=== PATIENT | female | born 1930 | race Caucasian/White ===

== ENCOUNTER 2018-01-21 11:00 | Outpatient (CLI) | payer MEDICARE, OTHER ==
[2018-01-21] MEDS ORDERED: IOPAMIDOL-300 100 ML VIAL ONE (11:17)
--- NOTE | 2018-01-21 12:57 | CT Preliminary Report ---
Exam: CT LOWER EXTREMITY LEFT W/O IMPRESSION: 1. Nondisplaced fracture left sacral ala without sclerosis, concerning for acute fracture. 2. No evidence of periprosthetic fracture. 3. Old right superior and inferior pubic rami fractures. 4. Possible superimposed nondisplaced right inferior pubic ramus fracture. 5. Subtle asymmetry of the left femoral head within the acetabular component, concerning for polyethy milena liner wear. 6. No large hip joint effusion visualized. [facility] SITE ID: [id number]
--- NOTE | 2018-01-21 13:19 | CT Report ---
EXAM: LEFT HIP CT WITHOUT CONTRAST. EXAM DATE: 01/21/2018 11:48 AM. CLINICAL HISTORY: Left hip pain. COMPARISON: None. TECHNIQUE: Thin-section axial images were acquired of the hip without contrast. Post-processing: Shady nal and sagittal reformats. Other: None. In accordance with CT protocol optimization, one or more of the following dose reduction techniques w ere utilized for this exam: automated exposure control, adjustment of mA and/or KV based on patient s ize, or use of iterative reconstructive technique. FINDINGS: Bones: Osteopenia. Streak artifact from bilateral hip prosthesis moderately limits evaluation at the level of the hips. Nondisplaced vertically oriented fracture at the inferior lateral aspect left sacral ala. No sclerosi s at this site, suggesting likely acute. Old minimally displaced fracture extends transversely through the distal sacrum at the S4 segment. Old healed fractures of the right superior and inferior pubic rami. Possible superimposed acute fract ure at the anterior aspect right inferior pubic ramus. No discrete periprosthetic fracture visualized at the left hip. Medial fixation screw at the right acetabulum extends 3 mm beyond the medial cortex. Lower lumbar spine: Grade 1 anterolisthesis at L5 on S1. Moderate to severe degenerative disk and fac et changes partially visualized. Ill-defined curvilinear foci of high attenuation within the peripher y of the thecal sac, most prominent in the sacrum. This may be due to old procedure or infection. Joints: Location of the femoral component of the left hip prosthesis slightly asymmetric, projecting in the superolateral aspect of the acetabular component (coronal image 118 of series 6.1). Tilt of th e acetabular component measures 49 degrees relative to the ischial tuberosities. No large joint effus ion visualized. Right femoral component symmetrically located within the acetabular component. Right acetabular compo nent measures 48 degrees relative to the ischial tuberosities. No large joint effusion visualized. Moderate degenerative changes at the sacroiliac joints and pubic symphysis. Musculature: Mild to moderate fatty atrophy in the bilateral gluteal muscles, left greater than right . Evaluation for muscle edema limited on CT. Other: Post surgical changes of ventral hernia repair. Severe atherosclerosis. Sigmoid diverticula. N o gross free fluid or enlarged lymph nodes visualized. IMPRESSION: 1. Nondisplaced fracture of the left sacral ala without sclerosis, concerning for acute fracture. 2. No evidence of periprosthetic fracture. 3. Old right superior and inferior pubic rami fractures. 4. Possible superimposed acute nondisplaced right inferior pubic ramus fracture. 5. Subtle asymmetry of the left femoral head within the acetabular component, concerning for polyethy milena liner wear. 6. No large hip joint effusion visualized. [facility] Referring Provider Line: [phone] SITE ID: [id number]
== END 2018-01-21 11:01 | disposition home or self-care (01) ==
LOC: DI 11:00
PROVIDERS: ATTEND Specialist
DX: S32.10XA Unspecified fracture of sacrum, initial encounter for closed fracture (principal)

== ENCOUNTER 2018-05-05 16:51 | Outpatient (CLI) | payer MEDICARE, OTHER ==
--- NOTE | 2018-05-06 08:20 | XRAY Report ---
Procedure Date: 05/05/2018 Accession Number: [id number] / [id number] Procedure: XR - Chest 2 View X-Ray CPT Code: 76023 FULL RESULT: EXAM: Chest 2 View X-Ray DATE: 05/05/2018 5:16 PM CLINICAL HISTORY: CHEST MARGI,CHRONIC COUGH COMPARISON: None. TECHNIQUE: 2 views. FINDINGS: Lungs/Pleura: No focal opacities evident. No pneumothorax or pleural effusion. Normal volumes. Mediastinum: Heart and mediastinal contours are unremarkable. Other: Right subclavian approach central venous port terminates in the lower SVC. Bones appear qualitatively osteopenic with question of a 30% loss of height compression fracture of a lower vertebral body of the thoracic spine, likely T11. IMPRESSION: No cardiopulmonary abnormality. Age-indeterminate compression fracture as described. [facility]
== END 2018-05-05 16:52 | disposition home or self-care (01) ==
LOC: DI 16:51
PROVIDERS: ATTEND Specialist
DX: R05 Cough (principal)
CPT/HCPCS: 71046

== ENCOUNTER 2018-08-25 13:55 | Emergency (ER) | payer MEDICARE, OTHER ==
--- NOTE | 2018-08-25 14:42 | ED Physician Documentation ---
PD HPI HEADACHE - Stated complaint Stated Complaint: MAYO/VISION CHANGING/LOW JAW PX - Chief complaint Chief Complaint: General - History obtained from History obtained from: Patient, Family - History of Present Illness Timing - onset: How many months ago (1) Timing - onset during: Rest Timing - duration: Months (1) Timing - details: Gradual onset, Still present Location: Right Quality: Throbbing, Aching Associated symptoms: Stiff neck, Nausea, Vision changes. No: Vomiting, Weakness, Numbness, Syncope, Seizure, Eye pain Improved by: Rest, Quiet Worsened by: Moving Contributing factors: Anticoagulated Similar symptoms before: Has not had sx before Recently seen: Not recently seen - Additional information Additional information: 87-year-old female with a prior history of breast cancer and stomach cancer has developed a headache in the right occipital area. She notes that this is been going on for about a month and it is progressively worsened day by day. She is now beginning to develop some nausea associated with this. She has not had any vomiting. She describes the pain is on the right side of her head radiating up to the front and coming from the back of her neck. She describes the visual field changes she is having as white lights interfering with her vision and some kind of a problem with the far left visual field out of the left eye. Review of Systems Constitutional: denies: Fever, Chills, Myalgias Eyes: reports: Decreased vision Ears: denies: Ear pain Nose: denies: Rhinorrhea / runny nose, Congestion Throat: denies: Sore throat Cardiac: denies: Chest pain / pressure, Palpitations Respiratory: denies: Dyspnea, Cough GI: reports: Nausea. denies: Abdominal Pain, Vomiting : denies: Dysuria, Frequency Skin: denies: Rash Musculoskeletal: reports: Neck pain, Back pain. denies: Extremity pain Neurologic: reports: Headache. denies: Generalized weakness, Focal weakness, Numbness, Difficulty speaking, Head injury, LOC PD PAST MEDICAL HISTORY - Present Medications Home Medications: Ambulatory Orders Medication Instructions Recorded Confirmed Cyclobenzaprine [Flexeril] 10 mg PO TID PRN #20 tablet 08/25/18 Hydrocodone/Acetaminophen 1 each PO Q6HR PRN #15 tablet 08/25/18 [Hydrocodon-Acetaminophn 10-325] PD ED PE NORMAL - Vitals Vital signs reviewed: Yes (normal) - General General: Alert and oriented X 3, Well developed/nourished, Other (The patient does appear to be in pain with global safety officer tone and flat affect. ) - HEENT HEENT: Atraumatic, PERRL, EOMI, Other (There is a subjective visual field defi cit on the left lateral feild and from the left eye only .) - Neck Neck: Supple, no meningeal sign, No bony TTP - Cardiac Cardiac: RRR, No murmur - Respiratory Respiratory: No respiratory distress, Clear bilaterally - Abdomen Abdomen: Soft, Non tender - Back Back: No CVA TTP, No spinal TTP - Derm Derm: Normal color, Warm and dry, No rash - Extremities Extremities: No deformity, No edema - Neuro Neuro: Alert and oriented X 3, No motor deficit, No sensory deficit, Normal speech Eye Opening: Spontaneous Motor: Obeys Commands Verbal: Oriented GCS Score: 15 - Psych Psych: Normal mood, Normal affect Results - Vitals Vitals: Vital Signs - 24 hr 08/25/18 13:58 Temperature 36.9 C Heart Rate 68 Respiratory 18 Rate Blood Pressure 135/54 H O2 Saturation 99 Oxygen O2 Source Room air - Rads (name of study) MRI brain with and without Radiology: Prelim report reviewed (Impression: 1. No acute intracranial abnormality. Specifically, no evidence of acute infarct, hemorrhage or mass lesion. 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 3 Mild to moderate white matter changes, most consistent with sequela of chronic small vessel ischemic disease and a common finding in this age group.), EMP read indepedently, See rad report PD MEDICAL DECISION MAKING - ED course Complexity details: reviewed old records, reviewed results, re-evaluated patient, considered differential, d/w patient, d/w family ED course: 87-year-old female with a severe headache progressive over the past month does have a left visual field deficit and pain in the right occiput. My concern is for the possibility of metastatic or primary tumor. The CT scan is not operational now and an MR is ordered. There is no evidence of metastatic or primary tumor and no evidence of bleed. The patient is treated in the emergency department with intravenous dexamethasone Dilaudid and Zofran. She has some improvement her headache with this. We will treat her with pain medication muscle relaxant expect her headache to resolve further. Departure - Departure Disposition: 01 Home, Self Care Clinical Impression: Tension headache Condition: Stable Instructions: ED Headache Tension Follow-Up: Sander Pinzon MD [Primary Care Provider] - Prescriptions: Hydrocodone/Acetaminophen [Hydrocodon-Acetaminophn 10-325] 1 each PO Q6HR PRN #15 tablet PRN Reason: Pain Cyclobenzaprine [Flexeril] 10 mg PO TID PRN #20 tablet PRN Reason: Spasms
[2018-08-25] MEDS ORDERED: HYDROmorphone 1 MG/ML CARPUJECT IM STA (15:00)
[2018-08-25] MEDS ORDERED: ONDANSETRON ODT 4 MG TABLET TL STA (15:00)
[2018-08-25] MEDS ORDERED: DEXAMETHASONE 10 MG/ML VIAL PO STA (15:00)
[2018-08-25] MEDS ORDERED: ONDANSETRON 4 MG/2 ML VIAL ONE (15:55)
[2018-08-25] MEDS ORDERED: HYDROmorphone 1 MG/ML CARPUJECT IVP STA (16:05)
[2018-08-25] MEDS ORDERED: ONDANSETRON 4 MG/2 ML VIAL IVP STA (16:05)
[2018-08-25] MEDS ORDERED: DEXAMETHASONE 10 MG/ML VIAL IVP STA (16:06)
[2018-08-25] MEDS ORDERED: GADOBUTROL 7.5 MMOL/7.5 ML VIAL ONE (16:22)
[2018-08-25] MEDS ORDERED: GADOBUTROL 7.5 MMOL/7.5 ML VIAL IVP ONE (16:25)
--- NOTE | 2018-08-25 16:45 | MRI Report ---
Reason: progressive occipital headache visual field change Procedure Date: 08/25/2018 Accession Number: [id number] / [id number] Procedure: MRI - Brain W/WO CPT Code: FULL RESULT: EXAM: MRI BRAIN WITHOUT AND WITH CONTRAST EXAM DATE: 08/25/2018 04:29 PM. CLINICAL HISTORY: 87-year-old woman with progressive occipital headache and visual field change. COMPARISON: None. TECHNIQUE: Multiplanar, multisequence T1-weighted and fluid-sensitive MR sequences of the brain were performed. Sequences optimized for routine evaluation. Other: None. IV Contrast: 7 cc Gadavist. FINDINGS: Parenchyma: No evidence of acute infarct on diffusion weighted sequence. Linear focus of encephalomalacia is present in the left external capsule, consistent with remote infarct. Otherwise, the parenchyma demonstrates mild to moderate burden of nonspecific FLAIR hyperintensities in the periventricular and deep cerebral white matter as well as the alok, most consistent with sequelae of chronic small vessel ischemic disease and a common finding in this age group. No evidence of prior hemorrhage on susceptibility weighted sequence. No abnormal enhancement. Pituitary: Unremarkable. Ventricles and Extra-axial Spaces: Ventricles are symmetric and normal in size for age. Extra-axial spaces are unremarkable. No abnormal enhancement. Orbits: Unremarkable except for bilateral lens replacement surgery. Sinuses: Mild scattered mucosal thickening is present in the paranasal sinuses. There is a left mastoid effusion. Major Vascular Flow Voids: Intact. IMPRESSION: 1. No acute intracranial abnormality. Specifically, no evidence of acute infarct, hemorrhage, or mass lesion. 2. Linear encephalomalacia in the left external capsule, consistent with remote infarct. 3. Mild to moderate white matter changes, most consistent with sequelae of chronic small vessel ischemic disease and a common finding in this age group. [facility]
[2018-08-25 17:00] VITALS: BP 158/84
== END 2018-08-25 17:18 | disposition home or self-care (01) ==
LOC: ED 13:55
DX: G44.209 Tension-type headache, unspecified, not intractable (principal); G93.89 Other specified disorders of brain
CPT/HCPCS: 70553; 96372; 96374; 96375; 99283; A9585; J1170

== ENCOUNTER 2018-08-29 14:05 | Outpatient (CLI) | payer MEDICARE, OTHER | END 2018-08-29 14:06 | disposition critical access hospital (66) | LOC: EMS 14:05 | PROVIDERS: ATTEND Surgery | DX: M25.552 Pain in left hip (principal); M79.622 Pain in left upper arm; W01.0XXA Fall on same level from slipping, tripping and stumbling without subsequent striking against object, initial encounter; Y92.009 Unspecified place in unspecified non-institutional (private) residence as the place of occurrence of the external cause | CPT/HCPCS: A0425; A0427 ==

== ENCOUNTER 2018-10-05 12:38 | Outpatient (CLI) | payer MEDICARE, OTHER ==
--- NOTE | 2018-10-05 14:39 | CT Report ---
Reason: R SIDE HEADACHE CRESENDO, HX OF MULTIPLE MALIGNANE Procedure Date: 10/05/2018 Accession Number: [id number] / [id number] Procedure: CT - Head W/O CPT Code: FULL RESULT: EXAM: CT HEAD EXAM DATE: 10/05/2018 12:51 PM. CLINICAL HISTORY: Right side headache crescendo, history of multiple malignancy. COMPARISON: None. TECHNIQUE: Multiaxial CT images were obtained from the foramen magnum to the vertex. Reformats: Sagittal and coronal. IV contrast: None. In accordance with CT protocol optimization, one or more of the following dose reduction techniques were utilized for this exam: automated exposure control, adjustment of mA and/or KV based on patient size, or use of iterative reconstructive technique. FINDINGS: Parenchyma: No intraparenchymal hemorrhage. No evidence of mass, midline shift, or CT findings of infarction. Fung-white differentiation is distinct. Extraaxial Spaces: Normal for age. No subdural or epidural collections identified. Ventricles: Normal in size and position. Sinuses and Orbits: Partial opacification with mucoperiosteal thickening in the sphenoid sinus bilaterally. Visualized orbits are within normal limits. Bones: No evidence of fracture or calvarial defect. Other: None. IMPRESSION: Sphenoid sinus sinusitis. [facility]
== END 2018-10-05 12:39 | disposition home or self-care (01) ==
LOC: DI 12:38
PROVIDERS: ATTEND Family Medicine
DX: J32.3 Chronic sphenoidal sinusitis (principal)
CPT/HCPCS: 70450

== ENCOUNTER 2018-10-28 10:27 | Outpatient (CLI) | payer MEDICARE, OTHER ==
--- NOTE | 2018-10-28 14:13 | XRAY Report ---
Reason: ACUTE ON CHRONIC L HIP PAIN (HIP REPLACED 1977) Procedure Date: 10/28/2018 Accession Number: [id number] / [id number] Procedure: XR - Hip w/Pelvis 2-3V LT CPT Code: FULL RESULT: EXAM: LEFT HIP RADIOGRAPHY EXAM DATE: 10/28/2018 10:44 AM. CLINICAL HISTORY: Acute on chronic left hip pain (hip replaced 1977). COMPARISON: Hip w/pelvis 2-3v left 08/29/2018 2:33 PM. TECHNIQUE: 2 views. FINDINGS: Bones and Joints: No acute fractures or bone lesion. Old right pubic rami fractures. A right hip arthroplasty has been performed. This implant has a screw fixated cup component and serrated stem. A left arthroplasty has been performed. This implant has a screw fixation-type cup and the stem has been additionally secured by a cerclage wire and separate screw. No unexpected periprosthetic lucency or other evidence of loosening. Soft Tissues: Atherosclerotic calcifications. No soft tissue swelling. IMPRESSION: No evidence of hardware failure or acute fracture. [facility]
== END 2018-10-28 10:28 | disposition home or self-care (01) ==
LOC: DI 10:27
PROVIDERS: ATTEND Family Medicine
DX: M25.552 Pain in left hip (principal)

== ENCOUNTER 2018-11-05 13:29 | Outpatient (CLI) | payer MEDICARE, OTHER ==
--- NOTE | 2018-11-05 15:59 | XRAY Report ---
Reason: SEVER NECK PAIN X 2-3 MONTHS, NO IMPROVING W/CONSE Procedure Date: 11/05/2018 Accession Number: [id number] / [id number] Procedure: XRN - Cervical Spine Complete CPT Code: FULL RESULT: EXAM: CERVICAL SPINE RADIOGRAPHY EXAM DATE: 11/05/2018 02:04 PM. CLINICAL HISTORY: Severe neck pain x 2-3 months, not improving . Unable to turn head. COMPARISONS: None. TECHNIQUE: 5 views. FINDINGS: Alignment: There is minor compensatory dextro-scoliotic curvature with minor levo-scoliotic curvature of the upper thoracic spine. Head is tilted slightly downward to the left. There is otherwise normal lordotic curvature, no evidence of listhesis. Bones: The cervical vertebral bodies and posterior elements are well-visualized from the skull base through C7-T1. No fractures or bone lesions. Disks: Moderate to significant degenerative disk space narrowing at C2-C3 through C6-C7. Facets: Mild degenerative facet changes on the right. Moderate degenerative facet changes on the left with probable moderate foraminal narrowing on the left at C6-C7. Neural Foramina: As above. Soft Tissues: Normal. No prevertebral soft tissue swelling. The visualized lung apices are clear. IMPRESSION: At least moderate multilevel degenerative disk and facet changes as described. No fracture appreciated. [facility]
== END 2018-11-05 13:30 | disposition home or self-care (01) ==
LOC: DI.N 13:29
PROVIDERS: ATTEND Family Medicine
DX: M50.123 Cervical disc disorder at C6-C7 level with radiculopathy (principal)
CPT/HCPCS: 72050

== ENCOUNTER 2018-12-16 08:57 | Outpatient (CLI) | payer MEDICARE, OTHER ==
--- NOTE | 2018-12-16 11:02 | XRAY Report ---
Reason: ACUTE ON CHRONIC RT HIP PAIN FALL, HX OF HIP REPLA Procedure Date: 12/16/2018 Accession Number: [id number] / [id number] Procedure: XR - Hip w/Pelvis 2-3V RT CPT Code: FULL RESULT: EXAM: RIGHT HIP RADIOGRAPHY EXAM DATE: 12/16/2018 09:31 AM. CLINICAL HISTORY: Acute on chronic right hip pain fall, history of hip replacement. COMPARISON: HIP W/PELVIS 2-3V LT 10/28/2018. TECHNIQUE: 2 views. FINDINGS: Bones: Stable appearance of bilateral total hip arthroplasty components. There is no evidence of periprosthetic fracture or delayed hardware complication of either hip. Stable sequela of prior healed fracture of the right obturator ring. No acute fracture appreciated. Joints: SI joints are within expected limits for age. No dislocation or subluxation. Soft Tissues: No soft tissue swelling. Multiple herniorrhaphy mesh markers superimpose over the lower abdomen, stable in appearance. IMPRESSION: Stable exam findings. Stable appearance of bilateral total hip arthroplasty components; no evidence of acute fracture or delayed hardware complication. [facility]
== END 2018-12-16 08:58 | disposition home or self-care (01) ==
LOC: DI 08:57
PROVIDERS: ATTEND Family Medicine
DX: M25.551 Pain in right hip (principal); R10.2 Pelvic and perineal pain; Z96.643 Presence of artificial hip joint, bilateral

== ENCOUNTER 2019-01-01 09:50 | Outpatient (CLI) | payer MEDICARE, OTHER ==
--- NOTE | 2019-01-01 11:31 | CT Report ---
Reason: R PELVIC PAIN, FALL 3-4 WKS AGO Procedure Date: 01/01/2019 Accession Number: [id number] / [id number] Procedure: CT - Abdomen/Pelvis WO CPT Code: FULL RESULT: EXAM: CT ABDOMEN AND PELVIS EXAM DATE: 01/01/2019 10:19 AM. CLINICAL HISTORY: Right pelvic pain, fall 3-4 weeks ago. COMPARISONS: HIP W/PELVIS 2-3V RT 12/16/2018 9:21 AM PELVIS W/O 08/29/2018 4:53 PM. TECHNIQUE: Routine helical CT imaging was performed through the abdomen and pelvis. IV contrast: No. Enteric contrast: No. Reconstructions: Coronal and sagittal. In accordance with CT protocol optimization, one or more of the following dose reduction techniques were utilized for this exam: automated exposure control, adjustment of mA and/or KV based on patient size, or use of iterative reconstructive technique. FINDINGS: Lung Bases: Unremarkable. Liver: Normal. No masses. Gallbladder/Bile Ducts: Gallbladder is surgically absent. There is no biliary ductal dilatation. Spleen: Small parenchymal calcifications, consistent with granulomata otherwise normal. Pancreas: Fatty atrophy commensurate with age. Adrenal Glands: Normal. Kidneys: Normal. No masses or hydronephrosis. Peritoneal Cavity/Bowel: There is colonic diverticulosis without CT evidence of diverticulitis. Herniorrhaphy mesh superimposes the right lower abdominal wall. No free fluid, free air or adenopathy. No masses or acute inflammatory process. The appendix is not specifically visualized. Pelvic Organs: [place] artifact from bilateral total hip arthroplasties limits evaluation of the pelvic contents but no abnormality is demonstrated. Vasculature: No aneurysms or other significant abnormality. Bones: There is a nondisplaced acute or subacute fracture of the right inferior pubic ramus at its junction with the symphysis pubis. Reference series 3 image 75. This fracture is not evident even in retrospect on plain films of 12/16/2018. The expected welcome center agent fracture in the right obturator ring is not identified with this technique. Stable sequela of remote healed fracture of the right obturator ring. No additional acute fractures appreciated. There are bilateral hip arthroplasty components with spray artifact producing limitation. No appreciable periprosthetic fracture by CT. There is an age-indeterminate compression fracture at the superior endplate of the T12 vertebral body with loss of 30% of the bone height. There is no surrounding paraspinous soft tissue swelling. There is 5 mm of convex retropulsion of the posterior-superior vertebral body margin as a result of this fracture. Degenerative vacuum disk phenomenon is noted at L4-L5 and L5-S1. There is 6 mm of grade 1 anterolisthesis of L5 on S1. No appreciable pars defect. Other: None. IMPRESSION: 1. Acute/subacute nondisplaced fracture at the right inferior pubic ramus at its junction with the symphysis pubis. Expected additional/welcome center agent fracture in the right obturator ring is not identified. 2. Age-indeterminate compression fracture at the superior endplate of T12 as described. 5 mm of retropulsion of the posterior-superior vertebral body margin. Lack of paraspinous edema favors fracture is subacute or chronic. [facility] The call report notification system was initiated by Dr. Leroy Barone at 11:21 AM on 01/01/2019. The above call report findings were discussed with Sander Pinzon by Dr. Leroy Barone at 11:28 AM on 01/01/2019.
== END 2019-01-01 09:51 | disposition home or self-care (01) ==
LOC: DI 09:50
PROVIDERS: ATTEND Family Medicine
DX: S32.591A Other specified fracture of right pubis, initial encounter for closed fracture (principal); S22.088A Other fracture of T11-T12 vertebra, initial encounter for closed fracture
CPT/HCPCS: 74176

== ENCOUNTER 2019-03-15 17:35 | Outpatient (CLI) | payer MEDICARE, OTHER ==
--- NOTE | 2019-03-16 03:30 | XRAY Report ---
Reason: LT HIP PAIN, HEMATOMA, HX OF PELVIC FX Procedure Date: 03/15/2019 Accession Number: [id number] / [id number] Procedure: XR - Hip w/Pelvis 2-3V LT CPT Code: FULL RESULT: EXAM: LEFT HIP RADIOGRAPHY EXAM DATE: 03/15/2019 06:11 PM. CLINICAL HISTORY: LT HIP PAIN, HEMATOMA, HX OF PELVIC FX. COMPARISON: HIP W/PELVIS 2-3V RT 12/16/2018 9:21 AM. TECHNIQUE: 2 views. FINDINGS: Bones: Bilateral hip replacements. Healed right superior and inferior pubic rami fractures. No acute fracture. Joints: Bilateral hip replacements. The sacroiliac joints appear unremarkable. Soft Tissues: Postoperative changes of hernia repair. Atherosclerotic calcifications. IMPRESSION: Stable bilateral hip replacements and old, healed right pubic rami fractures. No evidence of acute fracture. [facility]
== END 2019-03-15 17:36 | disposition home or self-care (01) ==
LOC: DI 17:35
PROVIDERS: ATTEND Physician Assistant Medical
DX: M25.552 Pain in left hip (principal); Z96.643 Presence of artificial hip joint, bilateral

== ENCOUNTER 2019-03-16 01:57 | Emergency (ER) | payer MEDICARE, OTHER ==
--- NOTE | 2019-03-16 03:24 | ED Physician Documentation ---
History of Present Illness - Stated complaint Stated Complaint: HIP PX - Chief complaint Chief Complaint: Ext Problem - History obtained from History obtained from: Patient, Family - History of Present Illness Timing: How many days ago (9) - Additonal information Additional information: 88-year-old female has developed pain in her left hip that was excruciating had some improvement for several days and then became worse again. She is now having severe pain and has gone into see her primary care doctor and x-ray was ordered and plans were made for blood work and a CT scan to be done as well. The patient has come to the emergency department this evening in pain. She has had her prostheses in place for more than 25 years and feels that is worked well for her without ever having any problems. She states that she does not usually get infections of any kind. She denies any fever associated with this. She denies any trauma to the area. Review of Systems Constitutional: denies: Fever Eyes: denies: Decreased vision Ears: denies: Ear pain Nose: denies: Congestion Throat: denies: Sore throat Cardiac: denies: Chest pain / pressure, Palpitations Respiratory: denies: Dyspnea, Cough GI: denies: Abdominal Pain, Nausea, Vomiting : denies: Dysuria, Frequency Skin: denies: Rash Musculoskeletal: reports: Extremity pain, Joint pain, Pain with weight bearing. denies: Neck pain, Back pain Neurologic: denies: Generalized weakness, Focal weakness, Numbness PD PAST MEDICAL HISTORY - Past Medical History Cardiovascular: Hypertension, High cholesterol, Coronary artery disease, Atrial fibrillation Respiratory: None Neuro: Other (Restless legs syndrome - on Keppra for this, denies hx of seizures. 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 MAKER: Oophrectomy, Mastectomy, Breast implants Cardiovascular: Coronary stent - Present Medications Home Medications: Ambulatory Orders Medication Instructions Recorded Confirmed Atorvastatin Calcium 10 mg PO DAILY 08/29/18 08/29/18 Celecoxib 200 mg PO DAILY 08/29/18 08/30/18 Cholecalciferol (Vitamin D3) 2,000 unit PO DAILY 08/29/18 08/30/18 [Vitamin D3] Digoxin 250 mcg PO DAILY 08/29/18 08/30/18 Gabapentin 300 mg PO QPM 08/29/18 08/30/18 Glyburide/Metformin HCl 1 tab PO BID 08/29/18 08/29/18 [Glyburide-Metformin 5-500 mg] Isosorbide Mononitrate ER [Imdur] 60 mg PO DAILY 08/29/18 08/30/18 Levetiracetam [Keppra] 750 mg PO BID 08/29/18 08/29/18 Lisinopril 10 mg PO DAILY 08/29/18 08/29/18 Metoprolol Succinate [Toprol Xl] 100 mg PO BID 08/29/18 08/29/18 Multivitamin W/Minerals [Theragran 1 tab PO DAILY 08/29/18 08/29/18 M] Oxycodone HCl/Acetaminophen 2 tab PO Q4HR 08/29/18 08/29/18 [Oxycodone-Acetaminophen 5-325] Pramipexole Di-HCl [Pramipexole 0.25 mg PO QPM 08/29/18 08/30/18 Dihydrochloride] Rivaroxaban [Xarelto] 20 mg PO DAILY 08/29/18 08/30/18 Tizanidine HCl [Zanaflex] 2 mg PO QPM 08/29/18 08/30/18 Valacyclovir HCl [Valacyclovir] 1,000 mg PO TID 08/29/18 08/29/18 Vit A/C/E/Zinc/Selenium/Copper 1 tab PO DAILY 08/29/18 08/29/18 [Vision Formula Tablet] Citalopram Hydrobromide 20 mg PO DAILY 08/30/18 08/30/18 [Citalopram HBr] Ciprofloxacin HCl [Cipro] 500 mg PO BID #14 tablet 09/02/18 Morphine Sulfate 15 mg PO Q6HR PRN #20 tablet 03/16/19 - Allergies Allergies/Adverse Reactions: Allergies Allergy/AdvReac Type Severity Reaction Status Date / Time codeine Allergy Unknown Verified 08/29/18 14:29 - Social History Does the pt smoke?: Yes Smoking Status: Former smoker Does the pt drink ETOH?: Yes Does the pt have substance abuse?: No - Immunizations Immunizations are current?: Yes PD ED PE NORMAL - Vitals Vital signs reviewed: Yes (hypertensive ) - General General: Alert and oriented X 3, No acute distress, Well developed/nourished - HEENT HEENT: Atraumatic, PERRL, EOMI - Cardiac Cardiac: No murmur, Other (irregularly irregular ) - Respiratory Respiratory: No respiratory distress, Clear bilaterally - Abdomen Abdomen: Soft, Non tender - Back Back: No CVA TTP, No spinal TTP - Derm Derm: Normal color, Warm and dry, No rash - Extremities Extremities: Other (There is specific tenderness to the left hip over the trochanter and this is significant pain specifically to one area. There is pain to movement as well. distal n/v is intact. There is a faint yellow coloring to the overlying skin consistent with a resolving bruise ) - Neuro Neuro: Alert and oriented X 3, family services specialist 2-12 intact, No motor deficit, No sensory deficit, Normal speech Eye Opening: Spontaneous Motor: Obeys Commands Verbal: Oriented GCS Score: 15 - Psych Psych: Normal mood, Normal affect Results - Vitals Vitals: Vital Signs - 24 hr 03/16/19 03/16/19 03/16/19 10:20 11:18 12:58 Temperature 36.5 C Heart Rate 71 76 72 Respiratory 14 14 16 Rate Blood Pressure 135/83 H 112/63 134/63 H O2 Saturation 97 97 98 Oxygen O2 Source [] Room air O2 Source [] Nasal cannula O2 Source Room air - Labs Labs: Laboratory Tests 03/16/19 03/16/19 03/16/19 04:32 04:32 04:32 WBC 6.3 RBC 3.69 L Hgb 10.9 L Hct 32.3 L MCV 87.7 MCH 29.6 MCHC 33.7 RDW 13.4 Plt Count 234 MPV 7.4 L Neut # (Auto) 4.1 Lymph # (Auto) 1.3 L Titus # (Auto) 0.5 Eos # (Auto) 0.3 Baso # (Auto) 0.0 Absolute Nucleated RBC 0.01 Nucleated RBC % 0.1 ESR 41 H Whole Blood INR Sodium 138 Potassium 4.3 Chloride 101 Carbon Dioxide 21 Anion Gap 16.0 H BUN 29 H Creatinine 0.9 Estimated GFR (MDRD) 59 L Glucose 169 H Calcium 9.4 Total Bilirubin 0.7 AST 22 ALT 11 Alkaline Phosphatase 68 C-Reactive Protein 1.5 H Total Protein 7.0 Albumin 3.9 Globulin 3.1 Albumin/Globulin Ratio 1.3 Lipase 29 03/16/19 08:49 WBC RBC Hgb Hct MCV MCH MCHC RDW Plt Count MPV Neut # (Auto) Lymph # (Auto) Titus # (Auto) Eos # (Auto) Baso # (Auto) Absolute Nucleated RBC Nucleated RBC % ESR Whole Blood INR 2.4 H Sodium Potassium Chloride Carbon Dioxide Anion Gap BUN Creatinine Estimated GFR (MDRD) Glucose Calcium Total Bilirubin AST ALT Alkaline Phosphatase C-Reactive Protein Total Protein Albumin Globulin Albumin/Globulin Ratio Lipase - Rads (name of study) left hip Radiology: Prelim report reviewed (Impression: Stable bilateral hip replacements and old, healed right pubic rami fractures. No evidence of acute fracture. ), EMP read indepedently, See rad report CT hip Radiology: Prelim report reviewed (Impression: 1. Old right obturator ring fractures. No definite acute findings. Note that CT can be falsely negative for trabecular fracture in the setting of severe osteopenia. MRI could be used for further evaluation to exclude occult fracture if clinically indicated. Moderate osteoarthritis of the symphysis pubis is. Calcifications in the thecal sac may indicate adhesive capsulitis or sequela of prior inflammation/infection. Sigmoid diverticulosis. Upon further review, there is soft tissue prominence posterior to the left hip joint measures approximately 4.7 x 7.2 cm. This could represent an effusion or hematoma), EMP read indepedently, See rad report u/s hip Radiology: Prelim report reviewed (Impression: 1. Focal area of concern corresponds to region which is not completely cystic although does show some through-transmission. This measures 4.3 cm front to back 8.8 cm from top to bottom and 5.9 cm from side to side. Correlating this result with a recent CT indicates that this is probably an acute to subacute hematoma. If there is a history of trauma, infection would be considered unlikely.), EMP read indepedently, See rad report PD MEDICAL DECISION MAKING - ED course Complexity details: reviewed old records, reviewed results, re-evaluated patient, considered differential, d/w patient, d/w hospice care consultant (Varun will evaluate patient this afternoon. ) ED course: 88-year-old female with a prosthesis in the left hip that is giving her significant pain over the past 9 days has had a peak in her pain she is come to the emergency department for evaluation and she appears to have some irritation surrounding the prosthesis and elevation of her inflammatory markers. I have asked Dr. Bond to evaluate the patient here in the emergency department. The patient appears to have hematoma associated with the site of her pain. Infection appears unlikely. She did have some improvement with the use of morphine here in the emergency department and this was better pain control than what she received with the Dilaudid. She did not get adequate pain relief with oral hydrocodone and she is prescribed oral morphine. Departure - Departure Disposition: 01 Home, Self Care Clinical Impression: Left hip pain Condition: Stable Instructions: ED Contusion Hip Follow-Up: Sander Pinzon MD [Primary Care Provider] - Prescriptions: Morphine Sulfate 15 mg PO Q6HR PRN #20 tablet PRN Reason: Pain Comments: Please continue all home medications as previously instructed. Please take new pain medication as instructed.Please do not take your Coumadin today or tomorrow given your new bruise to the hip. Please contact your primary care physician later today to schedule close follow-up in the next 1 to 2 days. Return to ED sooner if you experience worsening symptoms or have other concerns. Discharge Date/Time: 03/16/19 13:04
[2019-03-16] MEDS ORDERED: KETOROLAC 30 MG/ML VIAL IVP STA (03:59)
[2019-03-16 04:42] LABS: BASOPHILS % (AUTO) 0.6 %; EOSINOPHILS # (AUTO) 0.3 10^3/uL (0.0-0.7); EOSINOPHILS % (AUTO) 4.3 %; HGB - HEMOGLOBIN 10.9 g/dL (12.0-16.0); LYMPHOCYTES # (AUTO) 1.3 10^3/uL (1.5-3.5); LYMPHOCYTES % (AUTO) 20.8 %; MEAN CORPUSCULAR HEMOGLOBIN 29.6 pg (27.0-31.0); MEAN CORPUSCULAR HGB CONC 33.7 g/dL (32.0-36.0); MEAN CORPUSCULAR VOLUME 87.7 fL (81.0-99.0); MEAN PLATELET VOLUME 7.4 fL (7.9-10.8); MONOCYTES # (AUTO) 0.5 10^3/uL (0.0-1.0); MONOCYTES % (AUTO) 8.4 %; NEUTROPHILS # (AUTO) 4.1 10^3/uL (1.5-6.6); NEUTROPHILS % (AUTO) 65.9 %; PLT - PLATELET COUNT 234 10^3/uL (130-450); RED BLOOD COUNT 3.69 10^6/uL (4.20-5.40); RED CELL DISTRIBUTION WIDTH 13.4 % (12.0-15.0); WHITE BLOOD COUNT 6.3 x10^3/uL (4.8-10.8)
[2019-03-16 04:58] LABS: ALBUMIN 3.9 g/dL (3.2-5.5); ALBUMIN/GLOBULIN RATIO 1.3 (1.0-2.2); BILIRUBIN,TOTAL 0.7 mg/dL (0.2-1.0); CALCIUM 9.4 mg/dL (8.5-10.3); CREATININE 0.9 mg/dL (0.4-1.0); CRP - C-REACTIVE PROTEIN 1.5 mg/dL (0-1.0)
[2019-03-16] MEDS ORDERED: ONDANSETRON 4 MG/2 ML VIAL IVP STA (05:01)
[2019-03-16] MEDS ORDERED: HYDROmorphone 1 MG/ML CARPUJECT IVP STA (05:01)
[2019-03-16] MEDS ORDERED: MORPHINE 10 MG/ML VIAL IVP STA ×2 (05:41→09:42)
[2019-03-16] MEDS ORDERED: IOVERSOL 320 100 ML VIAL IVP ONE ×2 (06:22→06:48)
--- NOTE | 2019-03-16 09:23 | XRAY Report ---
Reason: chest pain Procedure Date: 03/16/2019 Accession Number: [id number] / [id number] Procedure: XR - Chest 1 View X-Ray CPT Code: 25027 FULL RESULT: EXAM: CHEST RADIOGRAPHY EXAM DATE: 03/16/2019 08:59 AM. CLINICAL HISTORY: Chest pain. COMPARISON: CHEST 1 VIEW 08/29/2018 2:33 PM. TECHNIQUE: 1 view. FINDINGS: Lungs/Pleura: No focal consolidation, edema or effusions evident. Linear opacity overlying the right upper chest may represent atelectasis or overlying artifact. Mediastinum: Within exam limitations, the cardiomediastinal contour is normal. Other: A Port-A-Cath overlies the right chest terminating in the lower SVC and is higher in position compared to last exam in which terminated in the mid right atrium. It is approximately 3.5 cm higher than on prior exam. Breast implants overlie the chest. IMPRESSION: 1. No acute consolidation or edema. 2. Linear atelectasis versus overlying artifact right upper chest. 3. Port-A-Cath terminates in lower SVC and appears pulled back compared to last exam by approximately 3.5 cm. RADIA
--- NOTE | 2019-03-16 09:46 | CT Report ---
Reason: SEVERE PAIN OLD HARDWARE Procedure Date: 03/16/2019 Accession Number: [id number] / [id number] Procedure: CT - LOWER EXTREMITY WO - LT CPT Code: FULL RESULT: EXAM: LEFT HIP CT WITHOUT CONTRAST EXAM DATE: 03/16/2019 06:50 AM. CLINICAL HISTORY: Severe pain. COMPARISON: Radiograph 03/15/2019, CT 01/01/2019. TECHNIQUE: Thin-section axial images were acquired of the hip without contrast. Post-processing: Coronal and sagittal reformats. Other: Note that this examination was originally ordered with contrast. Although contrast was administered, it is not on the images. Either the timing was inaccurate or the contrast extravasated into the arm. In accordance with CT protocol optimization, one or more of the following dose reduction techniques were utilized for this exam: automated exposure control, adjustment of mA and/or KV based on patient size, or use of iterative reconstructive technique. FINDINGS: Bones: Severe osteopenia limits evaluation for subtle bony abnormalities. Prominent degenerative changes in the lower lumbar spine. Bilateral hip arthroplasties are present. The left femoral stem is cemented. There is a cerclage wire around the proximal left femur. No unexpected periprosthetic lucencies. The patient has old healed fractures of the right superior and inferior pubic rami. Joints: Moderate osteoarthritis is at the symphysis pubis. There is mild osteoarthritis of the bilateral SI joints. Musculature: The patient has calcific enthesopathy of the right hamstring origin. Other: Calcifications within the thecal sac of the inferior spine suggest adhesive capsulitis or sequela of prior infection/inflammation. Arterial calcifications indicate atherosclerosis. Sigmoid diverticulosis is present. The patient has had a laparoscopic ventral hernia repair. IMPRESSION: 1. Old right obturator ring fractures. 2. No definite acute findings. Note that CT can be falsely negative for trabecular fracture in the setting of severe osteopenia. MRI could be used for further evaluation to exclude occult fracture if clinically indicated. 3. Moderate osteoarthritis of the symphysis pubis. 4. Calcifications in the thecal sac may indicate adhesive capsulitis or sequelae of prior inflammation/infection. 5. Sigmoid diverticulosis. [facility] ADDENDUM: 03/16/19 12:18 Upon further review, there is soft tissue prominence posterior to the left hip joint that measures approximately 4.9 x 7.2 cm. This could represent an effusion or hematoma (series 6, image 200).
--- NOTE | 2019-03-16 11:47 | Ultrasound Report ---
Reason: pain posterior hip ? fluid Procedure Date: 03/16/2019 Accession Number: [id number] / [id number] Procedure: US - Ext Limited Non Vascular CPT Code: FULL RESULT: EXAM: LEFT UPPER EXTREMITY ULTRASOUND - LIMITED EXAM DATE: 03/16/2019 11:06 AM. CLINICAL HISTORY: Pain posterior hip, question fluid. COMPARISON: ABDOMEN/PELVIS W/O 01/01/2019 10:12 AM LOWER EXTREMITY LEFT W/ 03/16/2019 6:29 AM. TECHNIQUE: Real-time scanning was performed with static images obtained. FINDINGS: In the area of patient's concern, there is a focal semisolid lesion measuring 4.3 cm front to back, 8.8 cm from top to bottom and 5.9 cm from side to side. There is a small amount of through-transmission. Not distinctly cystic by ultrasound. IMPRESSION: 1. Focal area of concern corresponds to a region which is not completely cystic although does show some through-transmission. This measures 4.3 cm front to back, 8.8 cm from top to bottom, and 5.9 cm from side to side. Correlating this result with the recent CT indicates that this is probably acute to subacute hematoma. If there is a history of trauma, infection would be considered unlikely. RAD[facility]
--- NOTE | 2019-03-16 12:50 | ED Physician Documentation ---
ED Addendum - Addendum Addendum: 03/16/19 12:49 Patient received an handoff from Dr. Herbert. Patient currently awaiting further evaluation by radiologist, as well as orthopedic surgeon. Radiology to determine if patient requires IR drainage of hip. Orthopedic surgery also to evaluate patient for possible prosthetic infection or other complication. Both physicians evaluated patient further in the ED and felt that patient was suffering likely from a uncomplicated hematoma and did not require further interventions or hospitalization. Both felt patient was safe to discharge home. Patient is on Coumadin and INR is therapeutic. However, given her active bleeding, felt appropriate to advise holding Coumadin for the next 2 days and close primary care follow-up as an outpatient. Patient was also advised on holding diabetic medication as she received contrast today. Patient had requested pain medications from Dr. Herbert, who felt this was appropriate and patient discharged with pain medication, as well as other instructions.
[2019-03-16 12:58] VITALS: BP 134/63
--- NOTE | 2019-03-18 19:52 | CONSULTATION NOTE ---
DATE OF SERVICE: Physician: Juan Bond MD CONSULTATION REQUESTED BY: Raúl Herbert MD of the emergency medicine department CONSULTING PHYSICIAN: Juan Bond MD REASON FOR CONSULTATION: Asked to evaluate the patient for left hip pain. HISTORY OF PRESENT ILLNESS: The patient is a female who has had off and on left hip pain worsened ov er the last 9 days. She has had previous history of total joint arthroplasty over 15-20 years ago an d generally been doing quite well. She reportedly is on Coumadin and has had 9 days of hip pain, now presents with the complaint of left-sided hip pain. She points directly laterally on the left hip, saying that is where the pain is and says she has some swelling there. Denies any groin pain at this time. She is accompanied by a friend and evaluated in the emergency department. Please see electronic medical record for details with regard past medical history, past surgical his tory, social history, family history, medications, allergies. PHYSICAL EXAMINATION: GENERAL: The patient is a well-developed female in mild distress, cooperative with exam. Examined i n the emergency department. EXTREMITIES: The patient's left lower extremity demonstrates palpable dorsalis pedis and posterior t ibial pulses. She has 5/5 flexion and extension, ankle strength. With stabilization of the femur, s he has knee extension strength 5/5, flexion strength against resistance 5/5. Thigh and calf is soft, nontender. Lateral side of her hip shows some soft tissue prominence, which shows trace ecchymosis. There is softness of this prominence just posterior lateral to the greater trochanter. No greater t rochanteric pain with palpation. No pain with log rolling. No pain with gentle hip flexion, interna l and external rotation. A small prominence posteriorly lateral to the trochanter is moderately tend er though soft. No significant erythema, ecchymosis. Trace warmth is noted. Pelvis is stable to sh ucking. IMAGING: The patient had CT scan and ultrasound today showing findings consistent with total hip art hroplasty with significant acetabular component wear, an apparent broken cerclage wire and likely so ft tissue hematoma adjacent to the posterolateral structures. Please see official report in chart. ASSESSMENT AND PLAN: The patient is a female with likely hematoma around the left hip. This may or may not be related to her broken cerclage wire. There does not appear to be any other significant ac abner problems with her hip joint itself or the hardware, though she does have significant acetabular w ear. In regard to the hematoma, which appears to be the acute cause of her symptoms, I have recommended ap propriate INR management, and we will defer to the emergency medicine physician and the patient's med ica team for that. I recommend activity precautions and assistance and assistive device as necessar y. Recommend formal followup in the orthopedic clinic in 3-5 days to further assess the patient's pr ogress, though encouraged her and her friend to call or come in sooner should problems, questions or worsening condition arise. The above was reviewed with the patient. Her questions were answered. She verbalized agreement and satisfaction with the plan as outlined. TD: 03/18/2019 16:33
== END 2019-03-16 13:04 | disposition home or self-care (01) ==
LOC: ED 01:57
DX: M25.552 Pain in left hip (principal); M85.88 Other specified disorders of bone density and structure, other site; G25.81 Restless legs syndrome; I10 Essential (primary) hypertension; E11.9 Type 2 diabetes mellitus without complications; Z79.899 Other long term (current) drug therapy; Z91.81 History of falling; Z95.5 Presence of coronary angioplasty implant and graft; Z79.84 Long term (current) use of oral hypoglycemic drugs; Z79.01 Long term (current) use of anticoagulants; Z87.891 Personal history of nicotine dependence; Z96.643 Presence of artificial hip joint, bilateral
CPT/HCPCS: 36415; 71045; 73700; 76882; 80053; 83690; 85025; 85610; 85651; 86140; 87040; 96374; 96375; 96376; 99283; 99284; Q9967

== ENCOUNTER 2019-03-31 14:36 | Outpatient (CLI) | payer MEDICARE, OTHER ==
--- NOTE | 2019-04-02 01:23 | Ultrasound Report ---
Reason: HX OF PELVIC FX, L HIP PAIN, USE OF BLOOD THINNER Procedure Date: 03/31/2019 Accession Number: [id number] / [id number] Procedure: US - Ext Limited Non Vascular CPT Code: FULL RESULT: EXAM: LEFT LOWER EXTREMITY ULTRASOUND - LIMITED EXAM DATE: 03/31/2019 03:51 PM. CLINICAL HISTORY: History of pelvic fracture, left hip pain, use of blood thinner. COMPARISON: 03/16/2019 10:44 AM. TECHNIQUE: Real-time scanning was performed with static images obtained. FINDINGS: At the site of the patient's pain in the posterior left hip region, there is a complex debris-containing avascular fluid collection measuring 6.3 x 2.5 x 6.7 cm. Compared to the prior study, this is more consistent with a collection while previously it was more semisolid. Previously, the collection measured 8.8 x 4.3 x 5.9 cm. No additional masses are identified. No adenopathy. Remaining soft tissues are otherwise unremarkable. IMPRESSION: 1. Evolving left hip hematoma measuring 6.3 x 2.5 x 6.7 cm. 2. No new mass, adenopathy or additional new collections. [facility]
== END 2019-03-31 14:37 | disposition home or self-care (01) ==
LOC: DI 14:36
PROVIDERS: ATTEND Physician Assistant Medical
DX: S70.02XA Contusion of left hip, initial encounter (principal); M25.552 Pain in left hip; Z87.81 Personal history of (healed) traumatic fracture; Z79.01 Long term (current) use of anticoagulants
CPT/HCPCS: 76882

== ENCOUNTER 2019-11-15 09:28 | Outpatient (CLI) | payer MEDICARE, OTHER | END 2019-11-15 09:29 | disposition critical access hospital (66) | LOC: EMS 09:28 | PROVIDERS: ATTEND Surgery | DX: R53.1 Weakness (principal); R51 Headache | CPT/HCPCS: A0425; A0429 ==

== ENCOUNTER 2019-11-15 09:49 | Inpatient (IN) | payer MEDICARE, OTHER ==
[2019-11-15] MEDS ORDERED: SODIUM CHLORIDE 0.9% 1,000 ML IV ONE ×2 (11:20→14:59)
--- NOTE | 2019-11-15 11:22 | ED Physician Documentation ---
History of Present Illness - Stated complaint Stated Complaint: WEAKNESS - Chief complaint Chief Complaint: General - History obtained from History obtained from: Patient - History of Present Illness Timing: How many weeks ago (4) - Additonal information Additional information: 88-year-old female with a history of diabetes and multiple joint replacements has lost her 2 years ago she is become depressed and over the past year she has had increased issues with pain. She has pain in both of her hips she has a prosthesis that is worn out and she has "given up ". She has stopped taking her medications all of them about 1 month ago. She is now feeling weak and has pain all over. Review of Systems Constitutional: denies: Fever Eyes: denies: Decreased vision Ears: denies: Ear pain Nose: denies: Rhinorrhea / runny nose, Congestion Throat: denies: Sore throat Cardiac: denies: Chest pain / pressure, Palpitations Respiratory: denies: Dyspnea, Cough GI: reports: Nausea : denies: Dysuria, Frequency Skin: denies: Rash Musculoskeletal: reports: Neck pain, Back pain, Extremity pain Neurologic: reports: Generalized weakness. 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: Breast cancer : None HEENT: None Psych: None Musculoskeletal: Osteoarthritis, Osteopenia, Other Derm: None - Past Surgical History Past Surgical History: Yes General: Cholecystectomy, Appendectomy, Gastric surgery, Hiatal hernia repair Ortho: Hip replacement /COUNTER STACKER: Oophrectomy, Mastectomy, Breast implants Cardiovascular: Coronary stent - Present Medications Home Medications: Ambulatory Orders Medication Instructions Recorded Confirmed Atorvastatin Calcium 10 mg PO DAILY 08/29/18 08/29/18 Celecoxib 200 mg PO DAILY 08/29/18 08/30/18 Cholecalciferol (Vitamin D3) 2,000 unit PO DAILY 08/29/18 08/30/18 [Vitamin D3] Digoxin 250 mcg PO DAILY 08/29/18 08/30/18 Gabapentin 300 mg PO QPM 08/29/18 08/30/18 Glyburide/Metformin HCl 1 tab PO BID 08/29/18 08/29/18 [Glyburide-Metformin 5-500 mg] Isosorbide Mononitrate ER [Imdur] 60 mg PO DAILY 08/29/18 08/30/18 Levetiracetam [Keppra] 750 mg PO BID 08/29/18 08/29/18 Metoprolol Succinate [Toprol Xl] 100 mg PO BID 08/29/18 08/29/18 Multivitamin W/Minerals [Theragran 1 tab PO DAILY 08/29/18 08/29/18 M] Oxycodone HCl/Acetaminophen 2 tab PO Q4HR 08/29/18 08/29/18 [Oxycodone-Acetaminophen 5-325] Pramipexole Di-HCl [Pramipexole 0.25 mg PO QPM 08/29/18 08/30/18 Dihydrochloride] Rivaroxaban [Xarelto] 20 mg PO DAILY 08/29/18 08/30/18 Tizanidine HCl [Zanaflex] 2 mg PO QPM 08/29/18 08/30/18 Valacyclovir HCl [Valacyclovir] 1,000 mg PO TID 08/29/18 08/29/18 Vit A/C/E/Zinc/Selenium/Copper 1 tab PO DAILY 08/29/18 08/29/18 [Vision Formula Tablet] lisinopriL [Lisinopril] 10 mg PO DAILY 08/29/18 08/29/18 Citalopram Hydrobromide 20 mg PO DAILY 08/30/18 08/30/18 [Citalopram HBr] Ciprofloxacin HCl [Cipro] 500 mg PO BID #14 tablet 09/02/18 Morphine Sulfate 15 mg PO Q6HR PRN #20 tablet 03/16/19 - Allergies Allergies/Adverse Reactions: Allergies Allergy/AdvReac Type Severity Reaction Status Date / Time codeine Allergy Unknown Verified 11/15/19 09:56 - Social History Does the pt smoke?: Yes Smoking Status: Current every day smoker Does the pt drink ETOH?: Yes Does the pt have substance abuse?: No - Immunizations Immunizations are current?: Yes - POLST Patient has POLST: No PD ED PE NORMAL - Vitals Vital signs reviewed: Yes (tachy and hypertensive ) - General General: Alert and oriented X 3, No acute distress, Well developed/nourished - HEENT HEENT: Atraumatic, PERRL, EOMI, Other (dry mucous membranes ) - Neck Neck: Supple, no meningeal sign, No bony TTP - Cardiac Cardiac: No murmur, Other (tachy with loud 2nd sound ) - Respiratory Respiratory: No respiratory distress, Clear bilaterally - Abdomen Abdomen: Soft, Other (mild generalized tenderness without gaurding or rebound. ) - Back Back: No CVA TTP, No spinal TTP - Derm Derm: Normal color, Warm and dry, No rash - Extremities Extremities: No deformity, No edema, No calf tenderness / cord - Neuro Neuro: Alert and oriented X 3, fountain server 2-12 intact, No motor deficit, No sensory deficit, Normal speech Eye Opening: Spontaneous Motor: Obeys Commands Verbal: Oriented GCS Score: 15 - Psych Psych: Other (mood is withdrawn affect is blunted) Results - Vitals Vitals: Vital Signs - 24 hr 11/15/19 11/15/19 11/15/19 09:56 12:56 15:32 Temperature 36.6 C Heart Rate 121 H 113 H 106 H Respiratory 14 20 17 Rate Blood Pressure 160/94 H 155/88 H 105/66 O2 Saturation 100 97 97 11/15/19 17:29 Temperature Heart Rate 112 H Respiratory 17 Rate Blood Pressure 129/65 O2 Saturation 91 L Oxygen O2 Source [] Room air O2 Source [] Nasal cannula O2 Source Room air - Labs Labs: Laboratory Tests 11/15/19 11/15/19 11/15/19 11:45 13:55 13:55 WBC 10.6 RBC 4.15 L Hgb 11.8 L Hct 37.0 MCV 89.2 MCH 28.4 MCHC 31.9 L RDW 13.3 Plt Count 188 MPV 10.8 Neut # (Auto) 9.0 H Lymph # (Auto) 0.[address] [place] # (Auto) 0.7 Eos # (Auto) 0.1 Baso # (Auto) 0.0 Absolute Nucleated RBC 0.00 Nucleated RBC % 0.0 Sodium 133 L Potassium 5.0 Chloride 98 L Carbon Dioxide 22 Anion Gap 13.0 BUN 28 H Creatinine 0.9 Estimated GFR (MDRD) 59 L Glucose 417 H Lactic Acid 1.6 Calcium 8.9 Total Bilirubin 0.7 AST 24 ALT < 10 L Alkaline Phosphatase 128 H Total Protein 7.4 Albumin 3.5 Globulin 3.9 Albumin/Globulin Ratio 0.9 L Lipase 32 Urine Color Urine Clarity Urine pH Ur Specific Simpson Urine Protein Urine Glucose (UA) Urine Ketones Urine Occult Blood Urine Nitrite Urine Bilirubin Urine Urobilinogen Ur Leukocyte Esterase Urine RBC Urine WBC Ur Squamous Epith Cells Urine Bacteria Ur Microscopic Review Urine Culture Comments 11/15/19 14:09 WBC RBC Hgb Hct MCV MCH MCHC RDW Plt Count MPV Neut # (Auto) Lymph # (Auto) [place] # (Auto) Eos # (Auto) Baso # (Auto) Absolute Nucleated RBC Nucleated RBC % Sodium Potassium Chloride Carbon Dioxide Anion Gap BUN Creatinine Estimated GFR (MDRD) Glucose Lactic Acid Calcium Total Bilirubin AST ALT Alkaline Phosphatase Total Protein Albumin Globulin Albumin/Globulin Ratio Lipase Urine Color YELLOW Urine Clarity HAZY Urine pH 5.5 Ur Specific Simpson 1.025 Urine Protein 30 H Urine Glucose (UA) 500 H Urine Ketones TRACE Urine Occult Blood NEGATIVE Urine Nitrite NEGATIVE Urine Bilirubin NEGATIVE Urine Urobilinogen 0.2 (NORMAL) Ur Leukocyte Esterase NEGATIVE Urine RBC None Seen Urine WBC 0-3 Ur Squamous Epith Cells MOD Squamous H Urine Bacteria None Seen Ur Microscopic Review INDICATED Urine Culture Comments NOT INDICATED Procedures - IVC sono (time) 1120 Bedside IVC sono: IVC measures (cm) (0.66), IVC collapsed c insp (cm) (complete), Significant dehydration (est 2-3 liter deficit) PD MEDICAL DECISION MAKING - ED course Complexity details: reviewed old records, reviewed results, re-evaluated patient, considered differential, d/w patient ED course: 88-year-old diabetic female who was stopped taking her medications is now profoundly dehydrated and whole body pain. She is administered saline. She requires 2 L of saline and she is given some Toradol for pain relief this is inadequate and she is given Dilaudid and Zofran. Her diabetes is not controlled she does not have insulin at home. Despite 2 liters of saline and 8 hours in the ED her heart rate is still 120. She is depressed, has stopped her medications is profoundly dehydrated and she is willing to come into the hospital to continue hydration and correction of her diabetes. Departure - Departure Disposition: ED Place in Observation Clinical Impression: Dehydration Type 2 diabetes mellitus Qualifiers: Diabetes mellitus long term care phlebotomist insulin use: without fpc use Diabetes mellitus complication status: with hyperglycemia Qualified Code(s): E11.65 - Type 2 diabetes mellitus with hyperglycemia Condition: Fair
[2019-11-15 11:53] LABS: BASOPHILS % (AUTO) 0.4 %; EOSINOPHILS # (AUTO) 0.1 10^3/uL (0.0-0.7); HGB - HEMOGLOBIN 11.8 g/dL (12.0-16.0); LYMPHOCYTES # (AUTO) 0.7 10^3/uL (1.5-3.5); LYMPHOCYTES % (AUTO) 6.7 %; MEAN CORPUSCULAR HEMOGLOBIN 28.4 pg (27.0-31.0); MEAN CORPUSCULAR HGB CONC 31.9 g/dL (32.0-36.0); MEAN CORPUSCULAR VOLUME 89.2 fL (81.0-99.0); MEAN PLATELET VOLUME 10.8 fL (7.9-10.8); MONOCYTES # (AUTO) 0.7 10^3/uL (0.0-1.0); MONOCYTES % (AUTO) 6.5 %; PLT - PLATELET COUNT 188 10^3/uL (130-450); RED BLOOD COUNT 4.15 10^6/uL (4.20-5.40); RED CELL DISTRIBUTION WIDTH 13.3 % (12.0-15.0); WHITE BLOOD COUNT 10.6 x10^3/uL (4.8-10.8)
[2019-11-15] MEDS ORDERED: KETOROLAC 30 MG/ML VIAL IVP STA (13:36)
[2019-11-15 14:19] LABS: BILIRUBIN,URINE NEGATIVE (NEGATIVE); GLUCOSE, URINE (UA) 500 mg/dL (NEGATIVE); KETONES,URINE (UA) TRACE mg/dL (NEGATIVE); LEUKOCYTE ESTERASE, URINE NEGATIVE (NEGATIVE); NITRITE,URINE NEGATIVE (NEGATIVE); OCCULT BLOOD,URINE NEGATIVE (NEGATIVE); PH,URINE 5.5 PH (5.0-7.5); PROTEIN,URINE 30 mg/dL (NEGATIVE); UROBILINOGEN,URINE 0.2 (NORMAL) E.U./dL (NORMAL)
[2019-11-15 14:21] LABS: CLARITY,URINE HAZY (CLEAR)
[2019-11-15 14:29] LABS: CALCIUM 8.9 mg/dL (8.5-10.3); CARBON DIOXIDE - CO2 22 mmol/L (21-32); CHLORIDE 98 mmol/L (101-111); GLUCOSE 417 mg/dL (70-100); SODIUM 133 mmol/L (135-145)
[2019-11-15 14:30] LABS: BACTERIA,URINE None Seen /HPF (None Seen); RBC,URINE None Seen /HPF (0-5); SQUAMOUS EPITHELIAL CELL,UR MOD Squamous (<= Few)
[2019-11-15 15:21] LABS: ALBUMIN 3.5 g/dL (3.2-5.5); ALBUMIN/GLOBULIN RATIO 0.9 (1.0-2.2); ALKALINE PHOSPHATASE 128 IU/L (42-121); ALT ALANINE AMINOTRANSFERASE < 10 IU/L (10-60); AST ASPARTATE AMINOTRANSFERASE 24 IU/L (10-42); BILIRUBIN,TOTAL 0.7 mg/dL (0.2-1.0); BUN - BLOOD UREA NITROGEN 28 mg/dL (6-20); CREATININE 0.9 mg/dL (0.4-1.0); GFR - MDRD 59 (>89); LIPASE 32 U/L (22-51); TOTAL PROTEIN 7.4 g/dL (6.7-8.2)
[2019-11-15] MEDS ORDERED: ONDANSETRON 4 MG/2 ML VIAL IVP STA (15:42)
[2019-11-15] MEDS ORDERED: HYDROmorphone 1 MG/ML CARPUJECT IVP STA (15:42)
[2019-11-15] MEDS ORDERED: INSULIN REGULAR HUMAN 100 UNIT/1 ML 10 ML MDV IVP STA (17:29)
[2019-11-15 19:09] LABS: HEMOGLOBIN A1C 0.89 g/dL; HEMOGLOBIN A1C % 8.9 % (4.6-6.2)
[2019-11-15] MEDS ORDERED: HYDROcod/ACETAM 5/325 MG TABLET PO PRN (19:56)
[2019-11-15] MEDS: SODIUM CHLORIDE 0.9% 1,000 ML IV SCH (20:06)
--- NOTE | 2019-11-15 20:14 | HISTORY & PHYSICAL EXAMINATION ---
Chief Complaint - Chief Complaint Chief Complaint: tachycardia History of Present Illness - Admitted From Admitted From:: [facility] - History Obtained From Records Reviewed: yes History obtained from: patient - History of Present Illness HPI Comment/Other: Patient is and 88 y/o female who presented to the ED this morning with complain of generalized pain. She has osteoarthritis and history of hip replacement 22 years ago. Her hips are the source of most of her pain. It is difficult for her to sit on a hard surface like a toilet seat or to get up from a sitting position. She has been significantly depressed as a result of this pain and stopped taking all her medications about 1 month ago. These medications included metoprolol, digoxin and xarelto. She lives with her son and his . In the ED today she stayed persistently tachycardic with heart rate between 11'0 and 139. As a result she was presented for admission for further evaluation and treatment. During exam she complained of chest pain which is reproducible. She denies dyspnea, fever or chills. She experiences abdominal pain. Her left lower extremity appears larger than the red and slightly more hyperemic. She reports pain in the leg as well. History - Past Medical History Cardiovascular: reports: Hypertension, High cholesterol, Coronary artery disease, Atrial fibrillation Respiratory: reports: None Neuro: reports: Other Endocrine/Autoimmune: reports: Type 2 diabetes GI: reports: None CLIENT SALES AND SERVICE OFFICER: reports: Breast cancer : reports: None HEENT: reports: None Psych: reports: Depression Musculoskeletal: reports: Osteoarthritis, Osteopenia, Other Derm: reports: None MRSA Hx?: Yes Other Past Medical History: Polio in 1948 - Past Surgical History General: reports: Cholecystectomy, Appendectomy, Gastric surgery, Hiatal hernia repair Ortho: reports: Hip replacement /CLIENT SALES AND SERVICE OFFICER: reports: Oophrectomy, Mastectomy, Breast implants Cardiovascular: reports: Coronary stent - Family & Social History Family History: Mother: , Father: Living arrangement: At home Living Situation: With family - Substance History Use: Uses substance without health or social issues: NONE - POLST Patient has POLST: No POLST Status: Full Code Meds/Allgy - Home Medications Home Medications: Ambulatory Orders Medication Instructions Recorded Confirmed Atorvastatin Calcium 10 mg PO DAILY 08/29/18 08/29/18 Celecoxib 200 mg PO DAILY 08/29/18 08/30/18 Cholecalciferol (Vitamin D3) 2,000 unit PO DAILY 08/29/18 08/30/18 [Vitamin D3] Digoxin 250 mcg PO DAILY 08/29/18 08/30/18 Gabapentin 300 mg PO QPM 08/29/18 08/30/18 Glyburide/Metformin HCl 1 tab PO BID 08/29/18 08/29/18 [Glyburide-Metformin 5-500 mg] Isosorbide Mononitrate ER [Imdur] 60 mg PO DAILY 08/29/18 08/30/18 Levetiracetam [Keppra] 750 mg PO BID 08/29/18 08/29/18 Metoprolol Succinate [Toprol Xl] 100 mg PO BID 08/29/18 08/29/18 Multivitamin W/Minerals [Theragran 1 tab PO DAILY 08/29/18 08/29/18 M] Oxycodone HCl/Acetaminophen 2 tab PO Q4HR 08/29/18 08/29/18 [Oxycodone-Acetaminophen 5-325] Pramipexole Di-HCl [Pramipexole 0.25 mg PO QPM 08/29/18 08/30/18 Dihydrochloride] Rivaroxaban [Xarelto] 20 mg PO DAILY 08/29/18 08/30/18 Tizanidine HCl [Zanaflex] 2 mg PO QPM 08/29/18 08/30/18 Valacyclovir HCl [Valacyclovir] 1,000 mg PO TID 08/29/18 08/29/18 Vit A/C/E/Zinc/Selenium/Copper 1 tab PO DAILY 08/29/18 08/29/18 [Vision Formula Tablet] lisinopriL [Lisinopril] 10 mg PO DAILY 08/29/18 08/29/18 Citalopram Hydrobromide 20 mg PO DAILY 08/30/18 08/30/18 [Citalopram HBr] Ciprofloxacin HCl [Cipro] 500 mg PO BID #14 tablet 09/02/18 Morphine Sulfate 15 mg PO Q6HR PRN #20 tablet 03/16/19 - Allergies Allergies/Adverse Reactions: Allergies Allergy/AdvReac Type Severity Reaction Status Date / Time codeine Allergy Unknown Verified 11/15/19 09:56 Review of Systems - Constitutional Constitutional: denies: Fatigue, Fever, Chills - Eyes Eyes: denies: Pain, Vision loss - Ears, Nose & Throat Ears, Nose & Throat: denies: Ear pain, Vertigo, Sore throat - Cardiovascular Cariovascular: reports: Palpitations. denies: Chest pain, Edema, Lightheadedness - Respiratory Respiratory: denies: Cough, Sputum production, Wheezing, Snoring, SOB at rest, SOB with exertion - Gastrointestinal Gastrointestinal: denies: Abdominal pain, Abdominal distention, Constipation, Diarrhea, Change in bowel habits, Nausea, Vomiting, Coffee grounds emesis, Reflux/heartburn - Genitourinary Genitourinary: denies: Dysuria, Frequency, Urgency, Hematuria - Musculoskeletal Musculoskeletal: reports: Back pain, Joint pain - Integumentary Integumentary: denies: Rash, Pruritis, Lesions, Dryness - Neurological Neurological: denies: General weakness, Focal weakness, Headache, Dizziness - Psychiatric Psychiatric: reports: Depression. denies: Anxiety, Suicidal - Endocrine Endocrine: denies: Polyuria, Polydypsia - Hematologic/Lymphatic Hematologic/Lymphatic: denies: Anemia, Bruising, Petechiae Prior Level of Functionality: She is independent of activities of daily living Exam - Vital Signs Vital Signs: Vital Signs x48h Temp Pulse Pulse Resp BP BP Pulse Ox 11/15/19 18:32 36.6 C 119 H 18 123/80 96 11/15/19 18:10 139 H 16 146/72 H 95 11/15/19 17:29 112 H 17 129/65 91 L 11/15/19 15:32 106 H 17 105/66 97 11/15/19 12:56 113 H 20 155/88 H 97 - Physical Exam General Appearance: positive: Alert, Moderate distress, Severe distress Eyes Bilateral: positive: PERRL, EOMI ENT: positive: No signs of dehydration Neck: positive: No JVD, Trachea midline Respiratory: positive: No respiratory distress, Breath sounds nml, Other (chest tender to palpation). negative: Wheezes, Rales, Rhonchi Cardiovascular: positive: Tachycardia Back: positive: Nml inspection Skin: positive: No rash, Warm, Dry, Other (left lower extremity hyperemic) Extremities: positive: Other (hip pain. limited range of motion. left leg swollen). negative: Full ROM Neurologic/Psychiatric: positive: Oriented x3, Depressed mood/affect Conclusion/Plan - Problem List (1) Tachycardia Conclusion/Plan: Sinus Likely 2/2 medical noncompliance Will resume patient's metoprolol XL 100mg po bid (2) Afib Conclusion/Plan: Currently sinus tachycardia Will resume metoprolol and xarelto (3) Left leg swelling Conclusion/Plan: Lower extremity duplex ordered to assess for DVT (4) Type 2 diabetes mellitus Conclusion/Plan: Accu check SSI Qualifiers: Diabetes mellitus alf insulin use: without long filler cigar roller machine use Diabetes mellitus complication status: with hyperglycemia Qualified Code(s): E11.65 - Type 2 diabetes mellitus with hyperglycemia (5) Hyperlipidemia Conclusion/Plan: Resume atorvastatin (6) Hypertension Conclusion/Plan: Resume metoprolol and lisinopril (7) Osteoarthritis Conclusion/Plan: Pain management Patient to see orthopedic in [place] (Dr Carvalho) for possible re-evaluation of her hips (8) Depression Conclusion/Plan: Resume citalopram Social work consult placed - Lab Results Fish Bones: 11/15/19 11:45 11/15/19 13:55 Core Measures - Anticipated LOS I expect patient to be DC'd or transferred within 96 hours.: Yes - DVT/VTE - Prophylaxis VTE/DVT Device ordered at admit?: Yes VTE/DVT Prophylaxis med ordered at admit?: Yes
[2019-11-15] MEDS: HYDROmorphone 0.5 MG/0.5 ML SYRINGE IVP PRN ×2 (20:19→22:09)
[2019-11-15] MEDS: ONDANSETRON 4 MG/2 ML VIAL IVP PRN (20:38)
[2019-11-15] MEDS: INSULIN ASPART 300 UNIT/3 ML PEN SUBQ SCH (20:38)
[2019-11-15] MEDS: METOPROLOL SUCCINATE 50 MG TABLET PO SCH (21:57)
[2019-11-16] MEDS: SODIUM CHLORIDE FLUSH 0.9% 10 ML SYRINGE IVP SCH ×3 (00:21→17:18)
--- NOTE | 2019-11-16 00:27 | Ultrasound Report ---
Reason: left lower extremity swelling Procedure Date: 11/15/2019 Accession Number: [id number] / [id number] Procedure: US - Duplex Ext Veins Left CPT Code: Addended Final Report FULL RESULT: EXAM: LEFT LOWER EXTREMITY VENOUS ULTRASOUND EXAM DATE: 11/15/2019 11:53 PM. CLINICAL HISTORY: Left lower extremity swelling. COMPARISON: None. TECHNIQUE: Real-time sonographic vascular imaging was performed by the auto mechanics instructor through the lower extremity utilizing both color-flow and Doppler spectral analysis. Multiple order entry representative static images were saved for review. FINDINGS: Common Femoral Vein (CFV): Thrombus. CFV-GSV Junction: Thrombus. Thrombus. Femoral Vein (FV) Prox: Thrombus. Femoral Vein (FV) Mid: Thrombus. Femoral Vein (FV) Dist: Thrombus. Popliteal Vein: Thrombus. Posterior Tibial Veins: Thrombus. Peroneal Veins: Thrombus. Other: There is thrombus in the left external iliac vein. The common iliac could not be visualized due to bowel gas. Inferior vena cava at the level of the liver appears patent. There is a small popliteal fossa cyst measuring 2.3 x 0.5 x 1.4 cm. The left lobe of the liver appears heterogeneous. Neoplasm not excluded. IMPRESSION: 1. Extensive deep venous thrombosis on the left from the external iliac vein through the calf veins. 2. Left lobe of the liver appears heterogeneous. Neoplasm not excluded. RADIA The critical result notification system was initiated by Dr. Sander Cheng at 12:27 AM on 11/16/2019. ADDENDUM: 11/16/19 00:34 The above critical result findings were discussed with [facility] by Dr. Sander Cheng at 12:34 AM on 11/16/2019.
[2019-11-16] MEDS ORDERED: IOVERSOL 320 100 ML VIAL IVP ONE ×3 (00:31→09:14)
[2019-11-16] MEDS: HEPARIN 25000UNITS/500ML (D5W) 25,000 UNIT/500 ML BAG IV SCH (01:43)
[2019-11-16] MEDS: SODIUM CHLORIDE 0.9% 1,000 ML IV SCH (03:18)
[2019-11-16] MEDS: PANTOPRAZOLE 40 MG TABLET PO SCH (06:18)
[2019-11-16] MEDS: HYDROmorphone 0.5 MG/0.5 ML SYRINGE IVP PRN ×3 (06:19→22:24)
[2019-11-16] MEDS ORDERED: LIDOCAINE/PRILOCAINE 2.5% CREAM 5 GM TUBE TOP ONE (07:39)
[2019-11-16] MEDS: INSULIN ASPART 300 UNIT/3 ML PEN SUBQ SCH ×4 (08:18→21:33)
[2019-11-16 08:25] LABS: BASOPHILS % (AUTO) 0.4 %; EOSINOPHILS # (AUTO) 0.2 10^3/uL (0.0-0.7); EOSINOPHILS % (AUTO) 2.3 %; HGB - HEMOGLOBIN 8.8 g/dL (12.0-16.0); LYMPHOCYTES # (AUTO) 0.7 10^3/uL (1.5-3.5); LYMPHOCYTES % (AUTO) 7.7 %; MEAN CORPUSCULAR HEMOGLOBIN 28.1 pg (27.0-31.0); MEAN CORPUSCULAR HGB CONC 31.3 g/dL (32.0-36.0); MEAN CORPUSCULAR VOLUME 89.8 fL (81.0-99.0); MEAN PLATELET VOLUME 10.4 fL (7.9-10.8); MONOCYTES # (AUTO) 0.7 10^3/uL (0.0-1.0); MONOCYTES % (AUTO) 7.7 %; NEUTROPHILS # (AUTO) 6.9 10^3/uL (1.5-6.6); NEUTROPHILS % (AUTO) 81.3 %; PLT - PLATELET COUNT 160 10^3/uL (130-450); RED BLOOD COUNT 3.13 10^6/uL (4.20-5.40); RED CELL DISTRIBUTION WIDTH 13.5 % (12.0-15.0); WHITE BLOOD COUNT 8.5 x10^3/uL (4.8-10.8)
--- NOTE | 2019-11-16 08:32 | PHARMACY PROGRESS NOTE ---
- Best Possible Medication History Admit Date and Time: 11/15/19 180 Processed by: Pharmacy Medication History completed: In progress (patient unclear on some dosings, clarification in progress) As the person ultimately responsible for medication therapy, providers are able to order a medication from an existing home medication list in [facility] via the "Reconcile Routine" prior to Confirmation of that medication by high school learning support teacher. Such practice is discouraged except when the physician, in their clinical judgment, deems that a medical need exists for a medication without regard to previous use.
[2019-11-16 08:36] LABS: CALCIUM 8.3 mg/dL (8.5-10.3); CREATININE 0.8 mg/dL (0.4-1.0)
[2019-11-16 09:42] LABS: HGB - HEMOGLOBIN 8.3 g/dL (12.0-16.0)
--- NOTE | 2019-11-16 09:47 | CT Report ---
Reason: ?liver lesion Procedure Date: 11/16/2019 Accession Number: [id number] / [id number] Procedure: CT - Abdomen/Pelvis W CPT Code: Final Report FULL RESULT: EXAM: CT ABDOMEN AND PELVIS EXAM DATE: 11/16/2019 09:06 AM. CLINICAL HISTORY: ?liver lesion. COMPARISONS: ABDOMEN/PELVIS W/O 01/01/2019 10:12 AM. CHEST ANGIO 11/16/2019 8:57 AM. TECHNIQUE: Routine helical CT imaging was performed through the abdomen and pelvis. IV contrast: 90 mL OPTIRAY 320. Enteric contrast: No. Reconstructions: Coronal and sagittal. In accordance with CT protocol optimization, one or more of the following dose reduction techniques were utilized for this exam: automated exposure control, adjustment of mA and/or KV based on patient size, or use of iterative reconstructive technique. FINDINGS: Lung Bases: Findings above the diaphragm reported separately. Liver: Development of numerous masses within the liver, predominately in the left hepatic lobe, where a confluent mass measuring approximately 5 x 5 cm is seen. Small lesions are also seen in the right hepatic lobe. Gallbladder/Bile Ducts: Gallbladder is not seen. Dilatation of common bile duct up to 12 mm. Spleen: Scattered benign-appearing calcifications. No suspicious splenic masses detected. Pancreas: Atrophic pancreas, without mass or ductal dilatation identified. Adrenal Glands: Normal. Kidneys: 1 cm cyst in the upper pole the right kidney and lower pole of the left kidney. The kidneys enhance symmetrically without hydronephrosis. Peritoneal Cavity/Bowel: There is beam hardening artifact from bilateral total hip arthroplasties across the lower pelvis. There are numerous diverticuli of the descending colon and sigmoid without obstructing mass identified. No evidence of diverticulitis, colitis, or appendicitis. The appendix is well visualized and normal. Pelvic Organs: The imaged portion of the contour of the urinary bladder and uterus within normal limits. No cystic or mass lesions in either adnexa. Vasculature: No aneurysms identified. Heavy mural calcification of the abdominal aorta. Bones: No lytic or blastic lesions detected on bone window review. Other: None. IMPRESSION: Development of numerous hepatic masses, of indeterminate etiology. Mild dilatation of the common bile duct without visible obstruction. RADIA
--- NOTE | 2019-11-16 09:52 | CT Report ---
Reason: tachycardia w/ extensive left lower ext DVT. ?PE Procedure Date: 11/16/2019 Accession Number: [id number] / [id number] Procedure: CT - ANGIO CHEST W/WO CPT Code: Addended Final Report FULL RESULT: EXAM: CT ANGIOGRAM CHEST EXAM DATE: 11/16/2019 09:06 AM. CLINICAL HISTORY: Tachycardia w/ extensive left lower ext DVT. ?PE. COMPARISON: ABDOMEN/PELVIS W/ 11/16/2019 8:57 AM. TECHNIQUE: Routine helical imaging was performed through the chest in the pulmonary arterial phase. IV Contrast: OPTIRAY 320. Reconstructions: Coronal 3-D MIP reconstructions. Sagittal and coronal. In accordance with CT protocol optimization, one or more of the following dose reduction techniques were utilized for this exam: automated exposure control, adjustment of mA and/or KV based on patient size, or use of iterative reconstructive technique. FINDINGS: Pulmonary Arteries: Pulmonary embolism present. For example, pulmonary embolism seen in the right upper lobe anterior segmental and subsegmental pulmonary arteries, series 2, axial image 66. For example, pulmonary embolism seen in the subsegmental right middle lobe pulmonary arteries, series 2, axial image 83. For example, subsegmental pulmonary embolism seen in the right lower lobe posterior segment, series 2, axial image 102. For example, pulmonary embolism seen in the segmental and subsegmental pulmonary arteries of the lingula. Lungs/Pleura: No effusions. Mild cylindrical bronchiolectasis. Mild centrilobular emphysema. Solid pulmonary nodule in the posterior segment right upper lobe, series 3, axial image 75, measures 3-4 mm. Solid pulmonary nodule in the apical segment right upper lobe, series 3, axial image 80, measures 3 mm. Solid pulmonary nodule in the superior segment right lower lobe, series 3, axial image 150, measures 4 mm. Multiple additional small 2-3 mm pulmonary nodule seen. Posterior dependent subsegmental atelectasis. Mediastinum: 3 vessel coronary artery atherosclerotic calcifications. Heart is normal in size. Trace pericardial fluid. Right-sided Port-A-Cath with the catheter tip in the superior vena cava. No mediastinal or hilar lymphadenopathy. Thoracic Aorta: Calcific atherosclerotic disease present. Upper Abdomen: Low attenuating lesion in segment 6 of the right hepatic lobe measures 1.8 cm. Ill-defined hypoattenuating mass in the left hepatic lobe, measures approximately 10 cm. Possible small amount of intrahepatic biliary ductal dilatation in segment 3 of the left hepatic lobe. Cholecystectomy. Calcifications in the spleen, consistent with prior granulomatous infection. Atrophic pancreas. Symmetric perinephric edema. Colonic diverticulosis. Gastrojejunostomy. Billroth procedure. Osseous structures: Schmorl's node in the superior endplate of T12 with mild retropulsion of the posterior superior corner of the vertebra, unchanged. Severe lower cervical spondylosis. Other: Bilateral breast implants. IMPRESSION: 1. Segmental and subsegmental pulmonary embolism present. 2. Airways disease and emphysema. 3. Small pulmonary nodules, measuring 3-4 mm. Attention on follow-up. 4. Liver metastases suspected, better appreciated on CT abdomen and pelvis RADIA The call report notification system was initiated by Dr. Deon Solorio at 09:50 AM on 11/16/2019. ADDENDUM: 11/16/19 09:59 The above call report findings were discussed with [facility] by Dr. Deon Solorio at 09:59 AM on 11/16/2019.
[2019-11-16] MEDS: METOPROLOL SUCCINATE 50 MG TABLET PO SCH ×2 (10:19→21:20)
[2019-11-16] MEDS ORDERED: INSULIN GLARGINE 300 UNIT/3 ML PEN SUBQ SCH (11:00)
--- NOTE | 2019-11-16 12:03 | PROVIDER PROGRESS NOTE ---
Subjective - Prog Note Date Prog Note Date: 11/16/19 - Subjective Subjective: He reports no dyspnea but continues to complain of generalized weakness and body aches. She states most of her pain is located in her bilateral hips which is chronic in nature and has been present for multiple months. She also complaining of chest pain that has been present for a few months. She did not realize her left leg had been swollen but now recognizes it. She does complain of left leg tenderness on exam. She reports poor oral intake take while at home and a 20 pound weight loss that is unintentional. Current Medications - Current Medications Current Medications: Active Medications Hydrocodone Bitart/Acetaminophen (Chelsea 5/325) 1 tab PO Q4HR PRN PRN Reason: Pain 5 to 7 Heparin Sodium (Porcine) () 1,250 unit 25 unit/kg (1250 unit) IVP Q6H PRN PRN Reason: ANTI-XA < 0.2 Hydromorphone HCl (Dilaudid Inj Syringe) 0.5 mg IVP Q2H PRN PRN Reason: Pain 8 to 10 Last Admin: 11/16/19 10:19 Dose: 0.5 mg Heparin Sodium/Dextrose () 25,000 unit in 500 mls @ 15.15 mls/hr IV .Q33H1M [facility]; Protocol Last Admin: 11/16/19 01:43 Dose: 15 unit/kg/hr, 15.15 mls/hr Insulin Aspart (Novolog) 1 - 5 unit SUBQ 0800,1200,1700,2100 [facility]; Protocol Last Admin: 11/16/19 08:18 Dose: 4 unit Insulin Glargine (Lantus Solostar) 10 unit SUBQ DAILY [facility] Last Admin: 11/16/19 10:41 Dose: 10 unit Metoprolol Succinate (Toprol Xl) 100 mg PO BID [facility] Last Admin: 11/16/19 10:19 Dose: 100 mg Ondansetron HCl (Zofran Inj) 4 mg IVP Q4HR PRN PRN Reason: Nausea / Vomiting Last Admin: 11/15/19 20:38 Dose: 4 mg Pantoprazole Sodium (Protonix) 40 mg PO QDAC [facility] Last Admin: 11/16/19 06:18 Dose: 40 mg Sodium Chloride (Normal Saline Flush 0.9%) 10 ml IVP PRN PRN PRN Reason: NEEDED PER PROVIDER ORDERS Sodium Chloride (Normal Saline Flush 0.9%) 10 ml IVP 0100,0900,1700 [facility] Last Admin: 11/16/19 08:23 Dose: 20 ml Atorvastatin Calcium 10 mg PO DAILY 08/29/18 Celecoxib 200 mg PO DAILY 08/29/18 Digoxin 250 mcg PO DAILY 08/29/18 Gabapentin 300 mg PO QPM 08/29/18 Glyburide/Metformin HCl [Glyburide-Metformin 5-500 mg] 1 tab PO BID 08/29/18 Isosorbide Mononitrate ER [Imdur] 60 mg PO DAILY 08/29/18 Levetiracetam [Keppra] 750 mg PO BID 08/29/18 Metoprolol Succinate [Toprol Xl] 100 mg PO BID 08/29/18 Oxycodone HCl/Acetaminophen [Oxycodone-Acetaminophen 5-325] 1 tab PO QPM PRN 08/29/18 Pramipexole Di-HCl [Pramipexole Dihydrochloride] 0.25 mg PO QPM 08/29/18 Rivaroxaban [Xarelto] 20 mg PO DAILY 08/29/18 Tizanidine HCl [Zanaflex] 2 mg PO QPM 08/29/18 lisinopriL [Lisinopril] 10 mg PO DAILY 08/29/18 Citalopram Hydrobromide [Citalopram HBr] 10 mg PO DAILY 08/30/18 Metformin HCl 1,000 mg PO BID 11/16/19 Objective - Vital Signs/Intake & Output Reviewed Vital Signs: Yes Vital Signs: Vital Signs x48h Temp Pulse Pulse Resp BP Pulse Ox 11/16/19 11:18 36.9 C 87 18 135/70 H 98 11/16/19 09:04 37 C 87 16 97 11/16/19 07:25 37.0 C 87 16 120/55 L 97 11/16/19 05:00 36.6 C 84 16 102/62 94 Intake & Output: Intake & Output 11/13/19 11/14/19 11/15/19 11/16/19 23:59 23:59 23:59 23:59 Intake Total 1999 2619 Output Total 200 Balance 1999 2419 - Objective General Appearance: positive: No acute distress, Alert Eyes Bilateral: positive: Normal inspection, Conjunctivae nml ENT: positive: ENT inspection nml Neck: positive: Nml inspection Respiratory: positive: No respiratory distress, Other (Diminished breath sounds.). negative: Wheezes, Rales, Rhonchi Cardiovascular: positive: Regular rate & rhythm, No murmur. negative: Tachycardia, Bradycardia, Systolic murmur, Diastolic murmur Abdomen: positive: Non-tender, No distention. negative: Tenderness, Guarding, Rebound Skin: positive: Dry, Other (Her left lower extremity is mildly erythematous superior to the knee up to the thigh.) Extremities: positive: Pedal edema (Left lower extremity has +1 pitting edema. It is also tender to palpation.) Neurologic/Psychiatric: positive: Oriented x3, Other (No focal motor deficits.). negative: Disoriented to person, Disoriented to place, Disoriented to time - Lab Results Fish Bones: 11/16/19 09:25 11/16/19 08:09 Other Labs: Lab Results x24hrs 11/16/19 11/16/19 11/16/19 Range/Units 09:25 08:09 08:09 WBC (4.8-10.8) x10^3/uL RBC (4.20-5.40) 10^6/uL Hgb 8.3 L (12.0-16.0) g/dL Hct 26.3 L (37.0-47.0) % MCV (81.0-99.0) fL MCH (27.0-31.0) pg MCHC (32.0-36.0) g/dL RDW (12.0-15.0) % Plt Count (130-450) 10^3/uL MPV (7.9-10.8) fL Neut # (Auto) (1.5-6.6) 10^3/uL Lymph # (Auto) (1.5-3.5) 10^3/uL Boone # (Auto) (0.0-1.0) 10^3/uL Eos # (Auto) (0.0-0.7) 10^3/uL Baso # (Auto) (0.0-0.1) 10^3/uL Absolute Nucleated RBC x10^3/uL Nucleated RBC % /100WBC Anti-Xa Level 0.8 H ( - 0.7) U/mL Sodium 133 L (135-145) mmol/L Potassium 4.3 (3.5-5.0) mmol/L Chloride 102 (101-111) mmol/L Carbon Dioxide 19 L (21-32) mmol/L Anion Gap 12.0 (6-13) BUN 31 H (6-20) mg/dL Creatinine 0.8 (0.4-1.0) mg/dL Estimated GFR (MDRD) 68 L (>89) Glucose 348 H (70-100) mg/dL Glycated Hemoglobin (4.6-6.2) % Estim Average Glucose (70-100) Lactic Acid (0.5-2.2) mmol/L Calcium 8.3 L (8.5-10.3) mg/dL Total Bilirubin (0.2-1.0) mg/dL AST (10-42) IU/L ALT (10-60) IU/L Alkaline Phosphatase (42-121) IU/L Total Protein (6.7-8.2) g/dL Albumin (3.2-5.5) g/dL Globulin (2.1-4.2) g/dL Albumin/Globulin Ratio (1.0-2.2) Lipase (22-51) U/L Urine Color Urine Clarity (CLEAR) Urine pH (5.0-7.5) PH Ur Specific Garfield (1.002-1.030) Urine Protein (NEGATIVE) mg/dL Urine Glucose (UA) (NEGATIVE) mg/dL Urine Ketones (NEGATIVE) mg/dL Urine Occult Blood (NEGATIVE) Urine Nitrite (NEGATIVE) Urine Bilirubin (NEGATIVE) Urine Urobilinogen (NORMAL) E.U./dL Ur Leukocyte Esterase (NEGATIVE) Urine RBC (0-5) /HPF Urine WBC (0-5) /HPF Ur Squamous Epith Cells (<= Few) Urine Bacteria (None Seen) /HPF Ur Microscopic Review Urine Culture Comments 11/16/19 11/16/19 11/15/19 Range/Units 08:09 00:45 14:09 WBC 8.5 (4.8-10.8) x10^3/uL RBC 3.13 L (4.20-5.40) 10^6/uL Hgb 8.8 L (12.0-16.0) g/dL Hct 28.1 L (37.0-47.0) % MCV 89.8 (81.0-99.0) fL MCH 28.1 (27.0-31.0) pg MCHC 31.3 L (32.0-36.0) g/dL RDW 13.5 (12.0-15.0) % Plt Count 160 (130-450) 10^3/uL MPV 10.4 (7.9-10.8) fL Neut # (Auto) 6.9 H (1.5-6.6) 10^3/uL Lymph # (Auto) 0.7 L (1.5-3.5) 10^3/uL Boone # (Auto) 0.7 (0.0-1.0) 10^3/uL Eos # (Auto) 0.2 (0.0-0.7) 10^3/uL Baso # (Auto) 0.0 (0.0-0.1) 10^3/uL Absolute Nucleated RBC 0.00 x10^3/uL Nucleated RBC % 0.0 /100WBC Anti-Xa Level 0.0 ( - 0.7) U/mL Sodium (135-145) mmol/L Potassium (3.5-5.0) mmol/L Chloride (101-111) mmol/L Carbon Dioxide (21-32) mmol/L Anion Gap (6-13) BUN (6-20) mg/dL Creatinine (0.4-1.0) mg/dL Estimated GFR (MDRD) (>89) Glucose (70-100) mg/dL Glycated Hemoglobin (4.6-6.2) % Estim Average Glucose (70-100) Lactic Acid (0.5-2.2) mmol/L Calcium (8.5-10.3) mg/dL Total Bilirubin (0.2-1.0) mg/dL AST (10-42) IU/L ALT (10-60) IU/L Alkaline Phosphatase (42-121) IU/L Total Protein (6.7-8.2) g/dL Albumin (3.2-5.5) g/dL Globulin (2.1-4.2) g/dL Albumin/Globulin Ratio (1.0-2.2) Lipase (22-51) U/L Urine Color YELLOW Urine Clarity HAZY (CLEAR) Urine pH 5.5 (5.0-7.5) PH Ur Specific Garfield 1.025 (1.002-1.030) Urine Protein 30 H (NEGATIVE) mg/dL Urine Glucose (UA) 500 H (NEGATIVE) mg/dL Urine Ketones TRACE (NEGATIVE) mg/dL Urine Occult Blood NEGATIVE (NEGATIVE) Urine Nitrite NEGATIVE (NEGATIVE) Urine Bilirubin NEGATIVE (NEGATIVE) Urine Urobilinogen 0.2 (NORMAL) (NORMAL) E.U./dL Ur Leukocyte Esterase NEGATIVE (NEGATIVE) Urine RBC None Seen (0-5) /HPF Urine WBC 0-3 (0-5) /HPF Ur Squamous Epith Cells MOD Squamous H (<= Few) Urine Bacteria None Seen (None Seen) /HPF Ur Microscopic Review INDICATED Urine Culture Comments NOT INDICATED 11/15/19 11/15/19 11/15/19 Range/Units 13:55 13:55 13:55 WBC (4.8-10.8) x10^3/uL RBC (4.20-5.40) 10^6/uL Hgb (12.0-16.0) g/dL Hct (37.0-47.0) % MCV (81.0-99.0) fL MCH (27.0-31.0) pg MCHC (32.0-36.0) g/dL RDW (12.0-15.0) % Plt Count (130-450) 10^3/uL MPV (7.9-10.8) fL Neut # (Auto) (1.5-6.6) 10^3/uL Lymph # (Auto) (1.5-3.5) 10^3/uL Boone # (Auto) (0.0-1.0) 10^3/uL Eos # (Auto) (0.0-0.7) 10^3/uL Baso # (Auto) (0.0-0.1) 10^3/uL Absolute Nucleated RBC x10^3/uL Nucleated RBC % /100WBC Anti-Xa Level ( - 0.7) U/mL Sodium 133 L (135-145) mmol/L Potassium 5.0 (3.5-5.0) mmol/L Chloride 98 L (101-111) mmol/L Carbon Dioxide 22 (21-32) mmol/L Anion Gap 13.0 (6-13) BUN 28 H (6-20) mg/dL Creatinine 0.9 (0.4-1.0) mg/dL Estimated GFR (MDRD) 59 L (>89) Glucose 417 H (70-100) mg/dL Glycated Hemoglobin 8.9 H (4.6-6.2) % Estim Average Glucose 209 H (70-100) Lactic Acid 1.6 (0.5-2.2) mmol/L Calcium 8.9 (8.5-10.3) mg/dL Total Bilirubin 0.7 (0.2-1.0) mg/dL AST 24 (10-42) IU/L ALT < 10 L (10-60) IU/L Alkaline Phosphatase 128 H (42-121) IU/L Total Protein 7.4 (6.7-8.2) g/dL Albumin 3.5 (3.2-5.5) g/dL Globulin 3.9 (2.1-4.2) g/dL Albumin/Globulin Ratio 0.9 L (1.0-2.2) Lipase 32 (22-51) U/L Urine Color Urine Clarity (CLEAR) Urine pH (5.0-7.5) PH Ur Specific Garfield (1.002-1.030) Urine Protein (NEGATIVE) mg/dL Urine Glucose (UA) (NEGATIVE) mg/dL Urine Ketones (NEGATIVE) mg/dL Urine Occult Blood (NEGATIVE) Urine Nitrite (NEGATIVE) Urine Bilirubin (NEGATIVE) Urine Urobilinogen (NORMAL) E.U./dL Ur Leukocyte Esterase (NEGATIVE) Urine RBC (0-5) /HPF Urine WBC (0-5) /HPF Ur Squamous Epith Cells (<= Few) Urine Bacteria (None Seen) /HPF Ur Microscopic Review Urine Culture Comments ABX Reporting Has patient been on IV antibiotics over the past 48 hours?: No Assessment/Plan - Problem List (1) Bilateral pulmonary embolism Impression: She has bilateral segmental and subsegmental pulmonary embolism evident on CTA of the chest. This is likely why she was tachycardic initially and has been complaining of chest pain. She has been started on heparin which will be continued. We will monitor for signs of bleeding while anticoagulated. 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 (2) Deep vein thrombosis of left lower extremity Impression: His extensive DVT in the left lower extremity extending from the left external iliac down to the calf veins. She has been started on heparin we will monitor for bleeding. Qualifiers: Affected thrombotic vein of extremity: iliac Chronicity: acute Qualified Code(s): I82.422 - Acute embolism and thrombosis of left iliac vein (3) Liver mass Impression: This is evident on the CT of the abdomen and pelvis. There are numerous liver masses along with a confluent mass measuring 5 x 5 cm. This is concerning for metastases. The CT of the chest showed multiple pulmonary nodules without significant mass. The CT abdomen pelvis not reveal any other obvious mass. We will check a AFP. I discussed these results with the patient and given her prior history of cancers in the past she is not sure if she would want treatment once again. We discussed that she will require outpatient follow-up and likely a biopsy of this mass if she would want a diagnosis. She will discuss this with her family and let us know how she would like to proceed. Tells me she has a history of breast cancer in her 30s which is why she underwent a bilateral mastectomy. 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 and chemotherapy., (4) Anemia Impression: Her hemoglobin has decreased to 8.8 from 11.8 on admission. A component of this may be hemodilution given she received multiple liters of saline in the emergency department. She has no evidence of bleeding at the moment. He has been started on heparin given the pulmonary embolism and DVT. We will check iron studies and recheck hemoglobin this evening. Stool occult has also been ordered. Suspect if there is no signs of hemorrhage, her anemia is likely chronic in nature and that it was only elevated on admission due to her being dehydrated. (5) Paroxysmal atrial fibrillation Impression: She has a history of atrial fibrillation for which she was on metoprolol and Xarelto in the past. She is currently in a sinus rhythm and is rate controlled after her metoprolol has been resumed. Suspect her tachycardia on admission was secondary to a component of dehydration as well as a pulmonary embolism and also the fact that she had discontinued her beta-susy. We will continue to monitor on telemetry for the time being and continue the metoprolol. (6) Depression Impression: Reports feeling depressed since her over 2 years ago. She denies any suicidal ideations. We will resume her home Celexa. (7) Coronary artery disease Impression: Reports a history of coronary artery disease with stenting in the past. We will resume her Lipitor but hold off on aspirin as she will be anticoagulated. 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 We will consult physical therapy as she has had decreased functional capacity secondary to her pain. We will treat her pain with extra strength Tylenol as well as Oxycodone. 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 Her A1c was 8.9%. He had previously been on glyburide and metformin. At this time, we will start her on Lantus 10 units as well as sliding scale. Carb controlled diet. chemical educator consult. Qualifiers: Diabetes mellitus intermission coordinator insulin use: without residential use Diabetes mellitus complication status: with hyperglycemia Qualified Code(s): E11.65 - Type 2 diabetes mellitus with hyperglycemia (10) Severe protein-calorie malnutrition Impression: She meets aspen criteria for severe protein calorie malnutrition given her weight loss of greater than 13% in past 8 months as well as reduced functional c apacity. Supplement her diet with Ensure.
[2019-11-16] MEDS ORDERED: oxyCODONE 5 MG TABLET PO PRN (12:33)
[2019-11-16] MEDS: ACETAMINOPHEN 500 MG TABLET PO SCH ×2 (13:31→21:20)
--- NOTE | 2019-11-16 15:55 | PHARMACY PROGRESS NOTE ---
- Best Possible Medication History Admit Date and Time: 11/16/19 1000 Processed by: Pharmacy Medication History completed: Yes Patient Interview: Completed Secondary Source(s): Physician records, Pharmacy records, Insurance records Patient poor historian in regards to meds. Admits to non-compliance for several medications. Med list compiled via pharmacy, primary care, and insurance information. As the person ultimately responsible for medication therapy, providers are able to order a medication from an existing home medication list in [facility] via the "Reconcile Routine" prior to Confirmation of that medication by family support specialist. Such practice is discouraged except when the physician, in their clinical judgment, deems that a medical need exists for a medication without regard to previous use.
[2019-11-16] MEDS: oxyCODONE 5 MG TABLET PO PRN ×2 (17:03→21:11)
[2019-11-16 18:14] LABS: HGB - HEMOGLOBIN 8.5 g/dL (12.0-16.0)
--- NOTE | 2019-11-16 18:57 | ADVANCE CARE PLANNING NOTE ---
Advance Care Planning - Planning Encounter Date: 11/16/19 Time: 11:45 Purpose: Discuss goals of care and current medical condition. Parties in Attendance: The patient by herself. Decisional Capacity of the Patient: She has the ability to make her own medical decisions. - Diagnosis for Encounter (1) Bilateral pulmonary embolism Summary: She presents with chest pain and weakness and was found to have bilateral pulmonary embolisms. She is on a heparin drip. (2) Deep vein thrombosis of left lower extremity Qualifiers: Affected thrombotic vein of extremity: iliac Chronicity: acute Qualified Code(s): I82.422 - Acute embolism and thrombosis of left iliac vein Summary: She has extensive DVT in her left lower extremity causing her discomfort and pain. This appears to be likely secondary to sedentary lifestyle although she may also have malignancy which predisposes her to a hypercoagulable state. (3) Liver mass Summary: This is a new finding this admission is concerning for either metastatic disease or malignancy. (4) Depression Summary: He has been depressed since her over 2 years ago. She stopping all of her medication about 1 month ago because she was tired of taking them. Reports no suicidal ideations. (5) Osteoarthritis Qualifiers: Osteoarthritis location: hip Osteoarthritis type: primary Laterality: bilateral Qualified Code(s): M16.0 - Bilateral primary osteoarthritis of hip Summary: She has osteoarthritis of multiple joints. She has had bilateral hip replacements over 20 years ago. (6) Severe protein-calorie malnutrition Summary: She has had poor oral intake and nutrition along with 20 pound weight loss. - Encounter Subjective/Patient's Story: Patient reports that she has been happily for over 50 years. She lost her back in July 2017 after he was diagnosed with a terminal illness. She states that when he was first diagnosed in 2014, the doctors in [place] told him that he would only have a few months to live but he ended up surviving for 2-1/2 years. She states she was very fortunate to have these extra 2-1/2 years with her . She states that she was quite happy with her life when he was alive but that she has become depressed since he . She states that shortly after he , she thought about taking her own life. She went outside during winter and sat down at a park hoping that she would just fall asleep forever. She states that since then, she promised to her children that she would never do that again. She states that she is quite hinduism and she realized that if she were to take her own life, she would not be able to go to [facility], [facility] and therefore she would not be with her and that is her ultimate goal. She has not had any further suicide attempts over the past couple of years. She states that she is depressed and she has been tired of taking her multiple medications and that she is up taking them on her own for the past month. She has been living with her son and [id number] here on [facility]. She states that she has been happy at home living with them but reports that there is really no significant conversation that happens at home. She states that most of her time at home just sitting in bed watching TV. She has not left the house much at all since August. She took 1 of her grandchildren out for dinner in [place] back in October but otherwise she has pretty much been at home. Spent some time going outside in her backyard where she will just sit and smoke a cigarette. She states that she would pray when she is outside and talk to her . Objective/Medical Story: She states that she was diagnosed with breast cancer in her 30s after doctors had told her to not worry about the mass in her breast. She states she eventually forced a second doctor to see her who also told her that she should not worry about the breast mass. Her would not take this as an answer and they went to the hospital where the surgeon said he would remove the mass. It ended up being malignancy and she had bilateral radical mastectomy. She is very thankful that her stood up for her at that time. She states there is a strong family history of cancer. Her daughter unfortunately had colon cancer in her 30s and ended up passing away from that after he did not respond to chemotherapy and spread to her spinal fluid. She states that she also had cancer about 7 years ago when she was living in [place]. She is diagnosed with cancer near her stomach and small intestine. She required a gastrojejunostomy and Billroth procedure. She states she was treated with chemotherapy and has since been in remission. She otherwise has coronary artery disease with stenting for which she was taking xarelto and lipitor before she discontinued her medications one month ago. Goals of Care: We discussed her current medical condition including the left lower extremity DVT and bilateral pulmonary embolism. Also discussed with her the concern for a liver mass or possibly metastatic disease to her liver. She is not sure if she would want a biopsy or further work-up given she has already had cancer twice and she is not sure she would want chemotherapy of third time. She also states her ultimate goal is to join her in [place]. We discussed that we will need to anticoagulate her given the pulmonary embolism and DVT. She cannot obtain a biopsy of the mass while anticoagulated. I also form her that this was not a to be done on an inpatient basis but she can follow-up with her primary care physician or an oncologist discussed the best way to proceed if she does wish to proceed with a biopsy. Plan: She would like to discuss her current condition with her family and think about what she truly wants before committing to a possible biopsy and treatment. She is not sure if she would want treatment and therefore it is even worth getting a biopsy if it would not pattern changer and repairer. She does state that she is DNR and that she would not like heroic measures. Her biggest concern at the moment is to make sure that she is comfortable and that her pain is treated from her osteoarthritis. She is also stated that if her condition were to truly decline from medical aspect, she would want to pursue comfort measures and her goal would be comfort. She recalls back when her daughter in her 30s, she was comfortable in the last few days of her life and that is what she would wish to happen to her if she were in that situation. The time being we will continue with anticoagulation and check an AFP to evaluate for possible liver malignancy. We will set her up with an outpatient oncology follow-up if she is agreeable to this prior to discharge. Code Status: Do Not Attempt Resuscitation Time spent on advance care plannin
[2019-11-16] MEDS: SODIUM CHLORIDE FLUSH 0.9% 10 ML SYRINGE IVP PRN ×2 (22:09→22:25)
[2019-11-16] MEDS: ONDANSETRON 4 MG/2 ML VIAL IVP PRN (23:01)
[2019-11-17] MEDS: HYDROmorphone 0.5 MG/0.5 ML SYRINGE IVP PRN ×6 (01:06→20:55)
[2019-11-17] MEDS: PROCHLORPERAZINE 10 MG/2 ML VIAL IVP PRN (01:06)
[2019-11-17] MEDS: SODIUM CHLORIDE FLUSH 0.9% 10 ML SYRINGE IVP SCH ×3 (01:38→15:50)
[2019-11-17] MEDS: PANTOPRAZOLE 40 MG TABLET PO SCH (06:31)
[2019-11-17 06:57] LABS: BASOPHILS % (AUTO) 0.3 %; EOSINOPHILS # (AUTO) 0.2 10^3/uL (0.0-0.7); EOSINOPHILS % (AUTO) 3.5 %; LYMPHOCYTES # (AUTO) 0.5 10^3/uL (1.5-3.5); LYMPHOCYTES % (AUTO) 8.4 %; MEAN CORPUSCULAR HEMOGLOBIN 28.2 pg (27.0-31.0); MEAN CORPUSCULAR HGB CONC 31.7 g/dL (32.0-36.0); MEAN CORPUSCULAR VOLUME 88.7 fL (81.0-99.0); MEAN PLATELET VOLUME 10.3 fL (7.9-10.8); MONOCYTES # (AUTO) 0.5 10^3/uL (0.0-1.0); MONOCYTES % (AUTO) 8.4 %; NEUTROPHILS # (AUTO) 4.9 10^3/uL (1.5-6.6); NEUTROPHILS % (AUTO) 78.9 %; PLT - PLATELET COUNT 148 10^3/uL (130-450); RED BLOOD COUNT 2.84 10^6/uL (4.20-5.40); RED CELL DISTRIBUTION WIDTH 13.4 % (12.0-15.0); WHITE BLOOD COUNT 6.2 x10^3/uL (4.8-10.8)
[2019-11-17 07:17] LABS: CALCIUM 8.5 mg/dL (8.5-10.3); CREATININE 0.8 mg/dL (0.4-1.0)
[2019-11-17] MEDS ORDERED: FERROUS SULFATE 325 MG TABLET PO SCH (08:00)
[2019-11-17] MEDS: DOCUSATE SODIUM 250 MG CAPSULE PO SCH (08:45)
[2019-11-17] MEDS: ACETAMINOPHEN 500 MG TABLET PO SCH ×2 (08:45→22:26)
[2019-11-17] MEDS: CITALOPRAM 10 MG TABLET PO SCH (08:46)
[2019-11-17] MEDS: SENNA 8.6 MG TABLET PO SCH (08:46)
[2019-11-17] MEDS: METOPROLOL SUCCINATE 50 MG TABLET PO SCH ×2 (08:47→22:26)
[2019-11-17] MEDS: SODIUM CHLORIDE 0.9% 1,000 ML IV SCH ×2 (08:48→21:30)
[2019-11-17] MEDS: INSULIN GLARGINE 300 UNIT/3 ML PEN SUBQ SCH (08:50)
[2019-11-17] MEDS: INSULIN ASPART 300 UNIT/3 ML PEN SUBQ SCH ×4 (08:51→22:26)
--- NOTE | 2019-11-17 10:25 | PROVIDER PROGRESS NOTE ---
Subjective - Prog Note Date Prog Note Date: 11/17/19 - Subjective Subjective: She reports feeling tired after working with physical therapy today. She is able to ambulate about 10 feet with a walker. She states her pain was controlled overnight but become more prominent after she made with physical therapy. The pain is all over her body and in her left lower extremity. She d oes still report some chest discomfort and dyspnea. Current Medications - Current Medications Current Medications: Active Medications Acetaminophen (Tylenol) 1,000 mg PO BID [facility] Last Admin: 11/17/19 08:45 Dose: 1,000 mg Citalopram Hydrobromide (Celexa) 10 mg PO DAILY [facility] Last Admin: 11/17/19 08:46 Dose: 10 mg Docusate Sodium (Colace 250mg Capsule) 250 - 500 mg PO DAILY [facility] Last Admin: 11/17/19 08:45 Dose: 250 mg Heparin Sodium (Porcine) () 1,250 unit 25 unit/kg (1250 unit) IVP Q6H PRN PRN Reason: ANTI-XA < 0.2 Hydromorphone HCl (Dilaudid Inj Syringe) 0.5 mg IVP Q2H PRN PRN Reason: PAIN Last Admin: 11/17/19 11:47 Dose: 0.5 mg Heparin Sodium/Dextrose () 25,000 unit in 500 mls @ 15.15 mls/hr IV .Q33H1M [facility]; Protocol Last Admin: 11/17/19 13:06 Dose: 10 unit/kg/hr, 10.1 mls/hr Sodium Chloride (Normal Saline 0.9%) 1,000 mls @ 83.333 mls/hr IV .Q12H [facility] Last Admin: 11/17/19 08:48 Dose: 83.333 mls/hr Insulin Aspart (Novolog) 1 - 9 unit SUBQ 0800,1200,1700,2100 [facility]; Protocol Last Admin: 11/17/19 13:05 Dose: 3 unit Insulin Glargine (Lantus Solostar) 20 unit SUBQ DAILY [facility] Last Admin: 11/17/19 08:50 Dose: 20 unit Metoprolol Succinate (Toprol Xl) 100 mg PO BID [facility] Last Admin: 11/17/19 08:47 Dose: 100 mg Ondansetron HCl (Zofran Inj) 4 mg IVP Q4HR PRN PRN Reason: Nausea / Vomiting Last Admin: 11/17/19 11:17 Dose: 4 mg Oxycodone HCl (Roxicodone) 10 mg PO Q4HR PRN PRN Reason: PAIN Last Admin: 11/16/19 21:11 Dose: 10 mg Pantoprazole Sodium (Protonix) 40 mg PO QDAC [facility] Last Admin: 11/17/19 06:31 Dose: 40 mg Prochlorperazine Edisylate (Compazine Inj) 10 mg IVP Q6HR PRN PRN Reason: Nausea / Vomiting Last Admin: 11/17/19 01:06 Dose: 10 mg Senna (Senokot) 8.6 - 17.2 mg PO DAILY [facility] Last Admin: 11/17/19 08:46 Dose: 8.6 mg Sodium Chloride (Normal Saline Flush 0.9%) 10 ml IVP PRN PRN PRN Reason: NEEDED PER PROVIDER ORDERS Last Admin: 11/16/19 22:25 Dose: 20 ml Sodium Chloride (Normal Saline Flush 0.9%) 10 ml IVP 0100,0900,1700 [facility] Last Admin: 11/17/19 07:56 Dose: Not Given Atorvastatin Calcium 10 mg PO DAILY 08/29/18 Isosorbide Mononitrate ER [Imdur] 60 mg PO DAILY 08/29/18 Metoprolol Succinate [Toprol Xl] 100 mg PO BID 08/29/18 Citalopram Hydrobromide [Citalopram HBr] 10 mg PO DAILY 08/30/18 Metformin HCl 1,000 mg PO BID 11/16/19 Oxybutynin [Ditropan] 5 mg PO BID 11/16/19 Tizanidine HCl 4 mg PO BID PRN 11/16/19 Warfarin Sodium 5 mg PO DAILY 11/16/19 glipiZIDE [Glipizide] 5 mg PO BIDWM 11/16/19 Objective - Vital Signs/Intake & Output Reviewed Vital Signs: Yes Vital Signs: Vital Signs x48h Temp Pulse Resp BP Pulse Ox 11/17/19 07:52 37.2 C 83 16 129/67 91 L 11/17/19 05:00 36.9 C 80 18 139/66 H 97 Intake & Output: Intake & Output 11/14/19 11/15/19 11/16/19 11/17/19 23:59 23:59 23:59 23:59 Intake Total 1999 3462.933 414.403 Output Total 400 250 Balance 1999 3062.933 164.403 - Objective General Appearance: positive: No acute distress, Alert, Lethargic Eyes Bilateral: positive: Normal inspection, Conjunctivae nml ENT: positive: ENT inspection nml Neck: positive: Nml inspection Respiratory: positive: No respiratory distress. negative: Wheezes, Rales, Rhonchi Cardiovascular: positive: Regular rate & rhythm, No murmur. negative: Tachycardia, Systolic murmur Abdomen: positive: Non-tender, No distention. negative: Tenderness Skin: positive: Warm, Dry, Other (Her left lower extremity is slightly erythematous from mid fermin up to her thigh.) Extremities: positive: Full ROM, Pedal edema (She has about +1 pitting edema in her left lower extremity) Neurologic/Psychiatric: positive: Oriented x3. negative: Disoriented to person, Disoriented to place, Disoriented to time - Lab Results Fish Bones: 11/17/19 14:50 11/17/19 06:30 Other Labs: Lab Results x24hrs 11/17/19 11/17/19 11/17/19 Range/Units 06:40 06:30 06:30 WBC (4.8-10.8) x10^3/uL RBC (4.20-5.40) 10^6/uL Hgb (12.0-16.0) g/dL Hct (37.0-47.0) % MCV (81.0-99.0) fL MCH (27.0-31.0) pg MCHC (32.0-36.0) g/dL RDW (12.0-15.0) % Plt Count (130-450) 10^3/uL MPV (7.9-10.8) fL Neut # (Auto) (1.5-6.6) 10^3/uL Lymph # (Auto) (1.5-3.5) 10^3/uL Benzie # (Auto) (0.0-1.0) 10^3/uL Eos # (Auto) (0.0-0.7) 10^3/uL Baso # (Auto) (0.0-0.1) 10^3/uL Absolute Nucleated RBC x10^3/uL Nucleated RBC % /100WBC Anti-Xa Level 0.4 ( - 0.7) U/mL Sodium 130 L (135-145) mmol/L Potassium 4.3 (3.5-5.0) mmol/L Chloride 99 L (101-111) mmol/L Carbon Dioxide 21 (21-32) mmol/L Anion Gap 10.0 (6-13) BUN 26 H (6-20) mg/dL Creatinine 0.8 (0.4-1.0) mg/dL Estimated GFR (MDRD) 68 L (>89) Glucose 299 H (70-100) mg/dL Calcium 8.5 (8.5-10.3) mg/dL Iron 15 L (28-170) ug/dL TIBC 216 L (250-450) ug/dL % Saturation 7 L (20-50) % Transferrin 154 L (192-382) mg/dL Ferritin 137.7 (11.0-306.8) ng/mL Troponin I High Sens (2.3-14.8) ng/L B-Natriuretic Peptide (5-100) pg/mL 11/17/19 11/16/19 11/16/19 Range/Units 06:30 23:35 20:20 WBC 6.2 (4.8-10.8) x10^3/uL RBC 2.84 L (4.20-5.40) 10^6/uL Hgb 8.0 L (12.0-16.0) g/dL Hct 25.2 L (37.0-47.0) % MCV 88.7 (81.0-99.0) fL MCH 28.2 (27.0-31.0) pg MCHC 31.7 L (32.0-36.0) g/dL RDW 13.4 (12.0-15.0) % Plt Count 148 (130-450) 10^3/uL MPV 10.3 (7.9-10.8) fL Neut # (Auto) 4.9 (1.5-6.6) 10^3/uL Lymph # (Auto) 0.5 L (1.5-3.5) 10^3/uL Benzie # (Auto) 0.5 (0.0-1.0) 10^3/uL Eos # (Auto) 0.2 (0.0-0.7) 10^3/uL Baso # (Auto) 0.0 (0.0-0.1) 10^3/uL Absolute Nucleated RBC 0.00 x10^3/uL Nucleated RBC % 0.0 /100WBC Anti-Xa Level 0.4 1.1 H* ( - 0.7) U/mL Sodium (135-145) mmol/L Potassium (3.5-5.0) mmol/L Chloride (101-111) mmol/L Carbon Dioxide (21-32) mmol/L Anion Gap (6-13) BUN (6-20) mg/dL Creatinine (0.4-1.0) mg/dL Estimated GFR (MDRD) (>89) Glucose (70-100) mg/dL Calcium (8.5-10.3) mg/dL Iron (28-170) ug/dL TIBC (250-450) ug/dL % Saturation (20-50) % Transferrin (192-382) mg/dL Ferritin (11.0-306.8) ng/mL Troponin I High Sens (2.3-14.8) ng/L B-Natriuretic Peptide (5-100) pg/mL 11/16/19 11/16/19 11/16/19 Range/Units 17:56 15:02 15:02 WBC (4.8-10.8) x10^3/uL RBC (4.20-5.40) 10^6/uL Hgb 8.5 L (12.0-16.0) g/dL Hct 26.6 L (37.0-47.0) % MCV (81.0-99.0) fL MCH (27.0-31.0) pg MCHC (32.0-36.0) g/dL RDW (12.0-15.0) % Plt Count (130-450) 10^3/uL MPV (7.9-10.8) fL Neut # (Auto) (1.5-6.6) 10^3/uL Lymph # (Auto) (1.5-3.5) 10^3/uL Benzie # (Auto) (0.0-1.0) 10^3/uL Eos # (Auto) (0.0-0.7) 10^3/uL Baso # (Auto) (0.0-0.1) 10^3/uL Absolute Nucleated RBC x10^3/uL Nucleated RBC % /100WBC Anti-Xa Level ( - 0.7) U/mL Sodium (135-145) mmol/L Potassium (3.5-5.0) mmol/L Chloride (101-111) mmol/L Carbon Dioxide (21-32) mmol/L Anion Gap (6-13) BUN (6-20) mg/dL Creatinine (0.4-1.0) mg/dL Estimated GFR (MDRD) (>89) Glucose (70-100) mg/dL Calcium (8.5-10.3) mg/dL Iron (28-170) ug/dL TIBC (250-450) ug/dL % Saturation (20-50) % Transferrin (192-382) mg/dL Ferritin (11.0-306.8) ng/mL Troponin I High Sens 35.0 H* (2.3-14.8) ng/L B-Natriuretic Peptide 704 H (5-100) pg/mL 11/16/19 Range/Units 15:02 WBC (4.8-10.8) x10^3/uL RBC (4.20-5.40) 10^6/uL Hgb (12.0-16.0) g/dL Hct (37.0-47.0) % MCV (81.0-99.0) fL MCH (27.0-31.0) pg MCHC (32.0-36.0) g/dL RDW (12.0-15.0) % Plt Count (130-450) 10^3/uL MPV (7.9-10.8) fL Neut # (Auto) (1.5-6.6) 10^3/uL Lymph # (Auto) (1.5-3.5) 10^3/uL Benzie # (Auto) (0.0-1.0) 10^3/uL Eos # (Auto) (0.0-0.7) 10^3/uL Baso # (Auto) (0.0-0.1) 10^3/uL Absolute Nucleated RBC x10^3/uL Nucleated RBC % /100WBC Anti-Xa Level 0.8 H ( - 0.7) U/mL Sodium (135-145) mmol/L Potassium (3.5-5.0) mmol/L Chloride (101-111) mmol/L Carbon Dioxide (21-32) mmol/L Anion Gap (6-13) BUN (6-20) mg/dL Creatinine (0.4-1.0) mg/dL Estimated GFR (MDRD) (>89) Glucose (70-100) mg/dL Calcium (8.5-10.3) mg/dL Iron (28-170) ug/dL TIBC (250-450) ug/dL % Saturation (20-50) % Transferrin (192-382) mg/dL Ferritin (11.0-306.8) ng/mL Troponin I High Sens (2.3-14.8) ng/L B-Natriuretic Peptide (5-100) pg/mL Assessment/Plan - Problem List (1) Bilateral pulmonary embolism Impression: She has bilateral segmental and subsegmental pulmonary embolisms. She fortunately has no evidence of right heart strain on echocardiogram. Her troponin is only mildly elevated in the 30s and her BNP is 700. She is also not hypoxic. She remains on a heparin drip given her continued slight drop in hemoglobin. We will transition to oral anticoagulation tomorrow in preparation for discharge if hemoglobin remains stable. (2) Deep vein thrombosis of left lower extremity Impression: She has extensive DVT in the left lower extremity extending from the left external iliac down to the calf veins. She will remain on heparin and transitio n to oral anticoagulation once her hemoglobin is stable. Qualifiers: Affected thrombotic vein of extremity: iliac Chronicity: acute Qualified Code(s): I82.422 - Acute embolism and thrombosis of left iliac vein (3) Liver mass Impression: This is a new finding on CT of the abdomen and pelvis which showed numerous liver masses along with a mass measuring 5 x 5 cm in the left hepatic lobe. We did discuss work-up of this mass but she is unsure if she would want to proceed with biopsy or not. An AFP has been ordered and this is pending. She would like to follow-up on an outpatient basis to discuss further work-up of this mass. She will follow-up with her primary care physician and if she would like work-up, she can be referred to oncology and interventional radiology. (4) Anemia of chronic disease Impression: Her iron studies are suggestive of anemia of chronic disease and not iron deficiency anemia. She has no evidence of bleeding and stool occult is pending although she has not yet had a bowel movement. Her hemoglobin does continue to drop and this morning it is 8.0. Part of this drop is likely dilutional given t he amount of IV fluid she received and the fact that she was dehydrated on admission. We will keep her in the hospital one more night while she is on IV heparin to make sure her hemoglobin stabilizes. We will obtain a type and screen in case her hemoglobin decreases and she requires transfusion. (5) Depression Impression: Her depression is stable at the moment. She has no suicidal ideations. We have resumed her home Celexa. (6) Paroxysmal atrial fibrillation Impression: History of proximal atrial fibrillation and she is currently rate controlled on metoprolol. She is to be anticoagulated for the age fibrillation as well as the DVT. Continue to monitor on telemetry while hospitalized. (7) Coronary artery disease Impression: She has had stenting in the past. Given she need to be on anticoagulation for proximal atrial fibrillation and DVT, we will place her on oral anticoagulation when her hemoglobin is stable and resume aspirin. Continue with Lipitor as shekhar odonnell. 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 Her pain is currently well controlled with oxycodone as needed and standing Tylenol. These will be continued on discharge. Qualifiers: Osteoarthritis location: hip (9) Type 2 diabetes mellitus Impression: Mayda hyperglycemic with a blood sugar in the 200s and low 300s. Will increase Lantus to 20 units daily and continue with sliding scale. We did discuss therapy on discharge and she is not sure if she would want insulin. She was on metformin and glipizide before which she is leaning towards resuming on discharge. Qualifiers: Diabetes mellitus long term care pharmacist insulin use: without intermediate use Diabetes mellitus complication status: with hyperglycemia Qualified Code(s): E11.65 - Type 2 diabetes mellitus with hyperglycemia (10) Severe protein-calorie malnutrition Impression: She meets criteria for severe protein calorie malnutrition per [facility]. We will continue with Ensure supplementation. Her oral intake is improving
[2019-11-17] MEDS: ONDANSETRON 4 MG/2 ML VIAL IVP PRN ×3 (11:17→20:55)
[2019-11-17] MEDS: HEPARIN 25000UNITS/500ML (D5W) 25,000 UNIT/500 ML BAG IV SCH (13:06)
[2019-11-17 15:05] LABS: HGB - HEMOGLOBIN 8.3 g/dL (12.0-16.0)
[2019-11-17] MEDS: SODIUM CHLORIDE FLUSH 0.9% 10 ML SYRINGE IVP PRN (15:50)
[2019-11-17] MEDS ORDERED: IOVERSOL 320 100 ML VIAL IVP ONE (21:41)
--- NOTE | 2019-11-17 21:48 | PROVIDER PROGRESS NOTE ---
Perinatology Physician Note - Perinatology Physician Note Perinatology Physician Note: November 17, 2019 21: 43 Nursing states that she suddenly developed sudden change in mental status over the last hour. She was previously alert, oriented, interactive. In reviewing her chart she is a lady who has had significant pain because of hips. She became depressed because of lack of mobility and stopped taking her medications a month ago. She came to the emergency room so weak and had generalized pain. She was found to be tachycardic, and reproducible chest pain. Her initial diagnosis was of weakness and pain, but with work-up on the hospitalist service she has been she is now day #3. She is on a heparin drip. Glucose is being controlled with Lantus. Sliding scale insulin. Found to have DVT with bilateral PEs. [id number] glucose is 142. Last temperature was at 8:48 PM and it was 37.1. Current heart rate is 87, blood pressure 134/68, respirations 20 and unlabored, and she has dropped her O2 sats and is 90% on room air requiring 1 L now. She is a thin elderly female, staring vacantly up at the ceiling. She does look at me when I speak to her. Voice is low, almost an audible. Psychomotor slowing. She states that she has chest pain and abdominal pain. She does not appear to be in acute respiratory distress and she does not have tachypnea or tachycardia. Slow unlabored respiration Regular rate and rhythm Abdomen is soft, nontender Left leg is edematous and the source of DVT Right pupil slightly larger than left pupil. Cranial nerves show her face to be vacant, but no facial droop. Voice is barely audible but speech is intact. No focal deficits and will follow commands to squeeze right hand, left hand. Not really moving her legs. But will withdraw to pain such as Babinski's. Toes downgoing. Assessment/plan: Sudden change in mental status in a patient getting anticoagulated for PE + Stat BMP + Stat EKG + Stat troponin + I have contacted son, Brenton, and he has been notified + Stat CT of head 22:13 She is more lucid. Speaking more but still not at the baseline of where she was oriented, very chatty before. She does get oxycodone for pain but that is not a new med. CT of head w/o hemorrhage Sodium is 132. She was 130 this morning. BUN and creatinine normal. Glucose is 166. Troponin this afternoon is 35. EKG shows sinus rhythm with PACs. No acute ST-T wave changes. Rate is 78. She continues to have clear lungs with slow unlabored respiration. A regular rate and rhythm. No focal neurologic signs other than psychomotor slowing. No source of infection found. Not having an [place]. CT without acute stroke. I was fearing hemorrhage in the face of anticoagulation. We will continue to monitor patient on telemetry and reassess 40 minutes spent in direct patient care for acute change in status
--- NOTE | 2019-11-17 22:16 | CT Report ---
Reason: sudden change p hep for PE Procedure Date: 11/17/2019 Accession Number: [id number] / [id number] Procedure: CT - Head W/O Stroke Protocol CPT Code: Final Report FULL RESULT: EXAM: CT HEAD EXAM DATE: 11/17/2019 10:00 PM. CLINICAL HISTORY: Sudden change p hep for PE. COMPARISON: CT HEAD W/O 10/05/2018 12:33 PM. TECHNIQUE: Multiaxial CT images were obtained from the foramen magnum to the vertex. Reformats: Sagittal and coronal. IV contrast: None. In accordance with CT protocol optimization, one or more of the following dose reduction techniques were utilized for this exam: automated exposure control, adjustment of mA and/or KV based on patient size, or use of iterative reconstructive technique. FINDINGS: Parenchyma: No intraparenchymal hemorrhage. No evidence of mass, midline shift, or CT findings of acute infarction. Fung-white differentiation is distinct. Moderate chronic microvascular change in the cerebral white matter bilaterally and a chronic lacunar infarct in the lateral left basal ganglia appear stable. Extraaxial Spaces: Age-related generalized cerebral volume loss is stable. No subdural or epidural collections identified. Ventricles: Normal in size and position. Sinuses and Orbits: Also thickening with air-fluid level is noted in the left sphenoid sinus suggesting sinusitis. Remaining visualized sinuses and mastoid air cells are clear. Orbits are unremarkable. Bones: No evidence of fracture or calvarial defect. Other: None. IMPRESSION: 1. No acute intracranial abnormality. No significant change compared to 10/05/2018. 2. Age-related generalized cerebral volume loss and moderate chronic microvascular change appears stable compared to prior CT 10/05/2018. 3. A chronic lacunar infarct in the lateral left basal ganglia is unchanged. [facility] The critical test notification system was initiated by Dr. Simon Arellano at 10:10 PM on 11/17/2019. The above critical test findings were discussed with Andie Christensen by Dr. Simon Arellano at 10:15 PM on 11/17/2019.
[2019-11-17 22:27] LABS: CALCIUM 8.4 mg/dL (8.5-10.3); CREATININE 0.6 mg/dL (0.4-1.0)
[2019-11-18] MEDS: ONDANSETRON 4 MG/2 ML VIAL IVP PRN (01:16)
[2019-11-18] MEDS: SODIUM CHLORIDE FLUSH 0.9% 10 ML SYRINGE IVP SCH ×2 (01:16→09:21)
[2019-11-18] MEDS: HYDROmorphone 0.5 MG/0.5 ML SYRINGE IVP PRN ×2 (01:16→03:21)
[2019-11-18] MEDS: SODIUM CHLORIDE FLUSH 0.9% 10 ML SYRINGE IVP PRN ×2 (03:22→04:57)
[2019-11-18] MEDS: PROCHLORPERAZINE 10 MG/2 ML VIAL IVP PRN (03:22)
[2019-11-18 05:23] LABS: BASOPHILS % (AUTO) 0.2 %; EOSINOPHILS # (AUTO) 0.3 10^3/uL (0.0-0.7); EOSINOPHILS % (AUTO) 4.4 %; HGB - HEMOGLOBIN 7.9 g/dL (12.0-16.0); LYMPHOCYTES # (AUTO) 0.7 10^3/uL (1.5-3.5); LYMPHOCYTES % (AUTO) 11.5 %; MEAN CORPUSCULAR HEMOGLOBIN 28.4 pg (27.0-31.0); MEAN CORPUSCULAR HGB CONC 32.1 g/dL (32.0-36.0); MEAN CORPUSCULAR VOLUME 88.5 fL (81.0-99.0); MONOCYTES # (AUTO) 0.6 10^3/uL (0.0-1.0); MONOCYTES % (AUTO) 9.5 %; NEUTROPHILS # (AUTO) 4.7 10^3/uL (1.5-6.6); NEUTROPHILS % (AUTO) 73.6 %; PLT - PLATELET COUNT 163 10^3/uL (130-450); RED BLOOD COUNT 2.78 10^6/uL (4.20-5.40); RED CELL DISTRIBUTION WIDTH 13.3 % (12.0-15.0); WHITE BLOOD COUNT 6.4 x10^3/uL (4.8-10.8)
[2019-11-18 05:35] LABS: CALCIUM 8.3 mg/dL (8.5-10.3); CREATININE 0.7 mg/dL (0.4-1.0)
[2019-11-18] MEDS: PANTOPRAZOLE 40 MG TABLET PO SCH (06:50)
[2019-11-18] MEDS ORDERED: APIXABAN 5 MG TABLET PO SCH (09:00)
[2019-11-18] MEDS: INSULIN ASPART 300 UNIT/3 ML PEN SUBQ SCH ×2 (09:03→12:15)
[2019-11-18] MEDS: DOCUSATE SODIUM 250 MG CAPSULE PO SCH (09:14)
[2019-11-18] MEDS: INSULIN GLARGINE 300 UNIT/3 ML PEN SUBQ SCH (09:15)
[2019-11-18] MEDS: SENNA 8.6 MG TABLET PO SCH (09:16)
[2019-11-18] MEDS ORDERED: KETOROLAC 15 MG/ML VIAL IVP STA (09:17)
[2019-11-18] MEDS ORDERED: MORPHINE SOL 10 MG/0.5 ML SYRINGE PO PRN (09:18)
[2019-11-18] MEDS: CITALOPRAM 10 MG TABLET PO SCH (09:19)
[2019-11-18] MEDS: METOPROLOL SUCCINATE 50 MG TABLET PO SCH (09:19)
--- NOTE | 2019-11-18 09:19 | Discharge Plan ---
Discharge Plan Problem Reviewed?: Yes Disposition: Home, Self Care Condition: Stable Prescriptions: Acetaminophen [Tylenol Extra Strength] 1,000 mg PO TID #90 tablet Atorvastatin Calcium 10 mg PO DAILY #30 tablet Citalopram [CeleXA] 10 mg PO DAILY #30 tablet Enoxaparin [Lovenox] 80 mg SUBQ Q24H #7 syringe glipiZIDE [Glipizide] 5 mg PO BIDWM #60 tablet Isosorbide Mononitrate ER [Imdur] 60 mg PO DAILY #60 tablet Metformin HCl 500 mg PO BID #60 tablet Metoprolol Succinate [Toprol Xl] 100 mg PO BID #60 tablet Morphine Ir [Ms Ir] 7.5 mg PO Q6H PRN #15 tablet PRN Reason: Pain Senna [Senokot] 8.6 - 17.2 mg PO DAILY #30 tablet Warfarin [Coumadin] 5 mg PO 1400 #30 tablet Diet: Cardiac Activity Restrictions: Activity as Tolerated Assistance Devices: Walker Instruction Topics: Embolism Pulmonary, Enoxaparin injection, Warfarin tablets Health Concerns: You were admitted to the hospital because you were dehydrated and your heart rate was elevated. You were found to have a blood clot in your left leg as well as in your lungs. This is likely why your heart rate was elevated. You were started on a blood thinner while you are here in the hospital and your blood counts have since remained stable. We have started you on a new medication called Eliquis which he takes twice a day for treatment of the blood clots. You were also found to have a liver mass which may need to be biopsied as this could potentially be a cancer. It is recommended you follow-up with your primary care doctor to discuss if you would like to pursue further work-up of this mass or not. Plan of Treatment: Please take Lovenox 80 mg injection every night at 9 PM. Please also take Coumadin 5 mg every evening. You will need your INR checked on Friday. Once your INR is above 2, you can stop the Lovenox injections. Please follow-up with your primary care physician to monitor your INR in the future. This is a blood thinner to help prevent further clots in your legs and lungs. I have prescribed your old medications to your pharmacy once again. Please take the metformin and glipizide as you were previously taking. We will initially put her on 500 mg twice a day of the metformin and glipizide 5 mg with meals. Your primary care doctor can increase metformin to 1000 mg twice a day if need be. Care Goals: Please follow-up with your primary care physician on November 23 at 9:30 AM. It is important to have your blood work checked during that visit to make sure your blood counts are stable. Assessment: Patient expressed understanding of the treatment plan. No Smoking: If you smoke, Please STOP! Call for help. Follow-up with: Javier Covington DO [Primary Care Provider] -
[2019-11-18] MEDS: ACETAMINOPHEN 500 MG TABLET PO SCH (09:29)
[2019-11-18] MEDS ORDERED: INSULIN GLARGINE 300 UNIT/3 ML PEN SUBQ SCH (10:00)
[2019-11-18 11:51] VITALS: BP 124/56
--- NOTE | 2019-11-18 12:21 | DISCHARGE SUMMARY ---
"Discharge Summary Admit Date: 11/15/19 Discharge Date: 11/18/19 Discharging Provider: Vladimir Blank Primary Care Provider: Javier Covington Code Status: Do Not Attempt Resuscitation Condition at Discharge: Stable Discharge Disposition: 01 Home, Self Care - DIAGNOSES Admission Diagnoses: Tachycardia A. fib Left leg swelling Type 2 diabetes mellitus Hyperlipidemia Hypertension Osteoarthritis Depression Discharge Diagnoses with Status of Each Condition: Bilateral pulmonary embolism - stable. This is a new diagnosis this admission. There was no evidence of right heart strain on echocardiogram. She was treated with heparin while hospitalized and her hemoglobin has remained stable. Unfortunately, she is not able to be discharged on Eliquis or Xarelto due to cost. She will be discharged on Lovenox 1.5 mg/kg every 24 hours as she prefers to take 1 injection daily rather than twice daily while she is bridged to Coumadin. She will have a CBC and INR checked on Friday, 22 November. INR is 1.9 prior to discharge although this is likely falsely elevated as she received a dose of Eliquis this morning. She is informed to follow-up with her primary care physician on 23 November. Transient change in mental status - resolved. The night prior to discharge she had an episode where she had a change in her mental status and was minimally responsive. This had occurred at around 9 PM on 17 November. 1 of her pupils appeared dilated and there was concern for hemorrhage given she was being anticoagulated. Fortunately a CT of the head came back unremarkable and her mental status returned to her baseline within 30 minutes. The etiology of this is not clear at the moment. Her blood glucose was within normal limits and ther e were no new medications that she had received. She was monitored for the next 20 hours and she has remained at her baseline. There are no focal deficits on exam and therefore there is low suspicion for a stroke. Deep vein thrombosis of left lower extremity - stable. This is a new diagnosis this admission. She is extensive DVT in the left lower extremity extending into the left iliac and calf veins. She will be discharged on Lovenox while bridged to Coumadin. Liver mass - stable. There was concern of a liver mass while she was having a Doppler of her lower extremity. CT the abdomen pelvis showed multiple masses in the liver and one large 5 x 5 cm mass. We did discuss with the patient that this may potentially be malignancy. She is unsure if she would want to be worked up or not at this moment. She will follow-up with her primary care physician for further management. AFP was checked and it was low. Anemia chronic disease - stable. Her hemoglobin is initially around 11 on admission and decreased to the 8's after she was hydrated with IV fluids. She was monitored for 48 hours while on heparin given the drop in hemoglobin. It was felt that this was secondary to hemodilution rather than bleeding. Hemoglobin has since been stable and there is no evidence of hemorrhage. Her iron studies are suggestive of anemia of chronic disease. She will be discharged on Lovenox while bridged to Coumadin. I have ordered for CBC to be checked on 22 November to monitor her hemoglobin. Depression - stable. She continues to feel depressed but has no suicidal ideations. She will resume her Celexa. Paroxysmal atrial fibrillation - stable. She remains rate controlled on her metoprolol. This will be continued. She will be anticoagulated with Lovenox while bridged to Coumadin for the DVT and pulmonary embolism. Coronary artery disease - stable. Troponins were flat and her EKG without signs of ischemia. She will continue Lipitor and Coumadin at home. She was previo usly not on aspirin and so this was not restarted. Osteoarthritis - stable. She continues to complain of chronic pain in all of her joints and her left leg with a DVT is. She was provided with morphine IR as well as Tylenol 1 g 3 times daily. She would likely benefit from physical therapy and possible referral to orthopedics. Type 2 diabetes mellitus - stable. Her A1c was elevated at 8.9% but she has been off of her medications for nearly 1 month. Her blood glucose has been controlled while on Lantus and sliding scale here in the hospital. She prefers to be discharged on oral hypoglycemic agents and so we will discharge on metformin 500 mg twice a day as well as glipizide 5 mg twice daily. She will follow-up with her PCP and her metformin to be titrated back to 1000 mg twice a day. Severe protein calorie malnutrition - stable. Her appetite has remained labile during this hospitalization. At times she is on a percent of her meals and other x50% of her meals. - HPI History of Present Illness: H&P per Dr. Padilla on 11/15/19: Patient is and 88 y/o female who presented to the ED this morning with complain of generalized pain. She has osteoarthritis and history of hip replacement 22 years ago. Her hips are the source of most of her pain. It is difficult for her to sit on a hard surface like a toilet seat or to get up from a sitting po sition. She has been significantly depressed as a result of this pain and stopped taking all her medications about 1 month ago. These medications included metoprolol, digoxin and xarelto. She lives with her son and his . In the ED today she stayed persistently tachycardic with heart rate between 11'0 and 139. As a result she was presented for admission for further evaluation and treatment. During exam she complained of chest pain which is reproducible. She denies dyspnea, fever or chills. She experiences abdominal pain. Her left lower extremity appears larger than the red and slightly more hyperemic. She reports pain in the leg as well. - CONSULTS | PROCEDURES Consultations: PT Procedures: CTA of the chest which showed segmental and subsegmental pulmonary embolism. She had small pulmonary nodules measuring 3 to 4 mm. There is also concern for metastatic disease in the liver. CT of the abdomen and pelvis was then obtained. This showed numerous hepatic masses of unclear etiology and there was a 5 x 5 cm mass. Doppler left lower extremity showed DVT from the left external iliac to the calf veins. CT of the head showed no acute intracranial abnormality. - HOSPITAL COURSE Hospital Course: She is admitted to the hospital for tachycardia with heart rate in the 120s and dehydration. She was initially treated with IV fluids. There was concern for edema and erythema left lower extremity and so a Doppler was obtained which showed extensive DVT from the left calf veins to the left external iliac. She was started on a heparin drip and a CTA of the chest was then obtained which showed bilateral segmental and subsegmental pulmonary embolisms. An echocardiogram was obtained which showed no evidence of right heart strain. Her troponin was only mildly elevated in the 30s and her EKG is without signs of ischemia. Her hemoglobin did drop from 11 to the mid 8's. It was felt that this was dilutional given amount of IV fluids she received. There was no evidence of bleeding and hemoglobin remained stable for 48 hours despite anticoagulation. There was also concern for a liver mass when the Doppler of the lower extremity was being obtained. A CT of the abdomen pelvis was performed which was concerning for multiple masses in the left liver and one 5 x 5 cm mass. 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 She is unsure if she would want to proceed with further work-up of this mass or not at the moment. She is agreeable to following up with her primary care physician to discuss this matter further. She was also hyperglycemic during this hospitalization and her A1c was 8.9%. She was treated with Lantus and sliding scale while hospitalized. She will be discharged on metformin 500 mg twice a day and glipizide 5 mg twice daily. Of note, the night prior to discharge she had an episode where she had a change in her mental status and was minimally responsive. This had occurred at around 9 PM on 17 November. 1 of her pupils appeared dilated and there was concern for hemorrhage given she was being anticoagulated. Fortunately a CT of the head came back unremarkable and her mental status returned to her baseline within 30 minutes. The etiology of this is not clear at the moment. Her blood glucose was within normal limits and there were no new medications that she had received. She was monitored for the next 20 hours and she has remained at her baseline. There are no focal deficits on exam and therefore there is low suspicion for a stroke. She was initially going to be discharged on Eliquis for the DVT and pulmonary embolism but unfortunately both Eliquis and Xarelto require more than a $200 co- pay which the patient cannot afford. Did discuss Lovenox but she has not preferred to inject herself twice daily. We agreed to once daily dosing with Lovenox while she is bridged to Coumadin. Given her weight is 50 kg, she will be discharged on 80 mg of Lovenox daily and she will be started on Coumadin 5 mg daily. I have ordered for an INR and CBC to be checked on 22 November. She has an appointment with her primary care physician on 23 November. Did discuss with the patient to monitor for signs of bleeding given she is on anticoagulation. - ALLERGIES Allergies/Adverse Reactions: Allergies Allergy/AdvReac Type Severity Reaction Status Date / Time codeine Allergy Unknown Verified 11/15/19 09:56 - MEDICATIONS Home Medications: Ambulatory Orders Medication Instructions Recorded Confirmed Oxybutynin [Ditropan] 5 mg PO BID 11/16/19 11/16/19 Tizanidine HCl 4 mg PO BID PRN 11/16/19 11/16/19 Acetaminophen [Tylenol Extra 1,000 mg PO TID #90 tablet 11/18/19 Strength] Atorvastatin Calcium 10 mg PO DAILY #30 tablet 11/18/19 Citalopram [CeleXA] 10 mg PO DAILY #30 tablet 11/18/19 Enoxaparin [Lovenox] 80 mg SUBQ Q24H #7 syringe 11/18/19 Isosorbide Mononitrate ER [Imdur] 60 mg PO DAILY #60 tablet 11/18/19 Metformin HCl 500 mg PO BID #60 tablet 11/18/19 Metoprolol Succinate [Toprol Xl] 100 mg PO BID #60 tablet 11/18/19 Morphine Ir [Ms Ir] 7.5 mg PO Q6H PRN #15 tablet 11/18/19 Senna [Senokot] 8.6 - 17.2 mg PO DAILY #30 tablet 11/18/19 Warfarin [Coumadin] 5 mg PO 1400 #30 tablet 11/18/19 glipiZIDE [Glipizide] 5 mg PO BIDWM #60 tablet 11/18/19 - PHYSICAL EXAM AT DISCHARGE General Appearance: positive: No acute distress, Alert Eyes Bilateral: positive: Normal inspection, Conjunctivae nml ENT: positive: ENT inspection nml Neck: positive: Nml inspection Respiratory: positive: No respiratory distress. negative: Wheezes, Rales, Rhonchi Cardiovascular: positive: Regular rate & rhythm, No murmur. negative: Tachycardia, Bradycardia, Systolic murmur, Diastolic murmur Abdomen: positive: Non-tender, No distention. negative: Tenderness, Guarding, Rebound Skin: positive: Warm, Dry, Other (Her left lower extremity is only now mildly hyperemic.) Extremities: positive: Pedal edema (+1 pitting edema in left lower extremity.) Neurologic/Psychiatric: positive: Oriented x3, Motor nml, Other (She is moving all four extremities. No focal motor deficits.). negative: Disoriented to person, Disoriented to place, Disoriented to time - LABS Result Diagrams: 11/18/19 05:05 11/18/19 05:05 - DIAGNOSTIC IMAGING Diagnostic Imaging Results: Final report reviewed - FOLLOW UP Follow Up: She has an appointment with her primary care physician on November 23 at 9:30 AM. - TIME SPENT Time Spent in Discharge (Minutes): 35"
[2019-11-18] MEDS ORDERED: ACETAMINOPHEN 500 MG TABLET PO SCH (14:00)
[2019-11-18 16:29] LABS: INR 1.9 (0.8-1.2); PT - PROTHROMBIN TIME 20.5 secs (9.9-12.6)
== END 2019-11-18 17:30 | disposition home or self-care (01) | DRG 175 ==
LOC: ED 09:49 → MS2 18:03 → OBSVTOIN 11-16 10:00
PROVIDERS: ADMIT Internal Medicine; ATTEND Internal Medicine
DX: I26.94 Multiple subsegmental thrombotic pulmonary emboli without acute cor pulmonale (principal); E43 Unspecified severe protein-calorie malnutrition; I82.422 Acute embolism and thrombosis of left iliac vein; I82.412 Acute embolism and thrombosis of left femoral vein; I82.432 Acute embolism and thrombosis of left popliteal vein; I82.452 Acute embolism and thrombosis of left peroneal vein; I82.442 Acute embolism and thrombosis of left tibial vein; Z68.1 Body mass index [BMI] 19.9 or less, adult; C78.7 Secondary malignant neoplasm of liver and intrahepatic bile duct; T46.4X6A Underdosing of angiotensin-converting-enzyme inhibitors, initial encounter; T44.7X6A Underdosing of beta-adrenoreceptor antagonists, initial encounter; T46.0X6A Underdosing of cardiac-stimulant glycosides and drugs of similar action, initial encounter; T45.516A Underdosing of anticoagulants, initial encounter; E78.00 Pure hypercholesterolemia, unspecified; T38.3X6A Underdosing of insulin and oral hypoglycemic [antidiabetic] drugs, initial encounter; I48.91 Unspecified atrial fibrillation; M79.89 Other specified soft tissue disorders; T46.6X6A Underdosing of antihyperlipidemic and antiarteriosclerotic drugs, initial encounter; F17.200 Nicotine dependence, unspecified, uncomplicated; T43.226A Underdosing of selective serotonin reuptake inhibitors, initial encounter; Z91.128 Patient's intentional underdosing of medication regimen for other reason; Y92.009 Unspecified place in unspecified non-institutional (private) residence as the place of occurrence of the external cause; E86.0 Dehydration; E78.5 Hyperlipidemia, unspecified; I10 Essential (primary) hypertension; F32.9 Major depressive disorder, single episode, unspecified; R46.4 Slowness and poor responsiveness; E11.65 Type 2 diabetes mellitus with hyperglycemia; D63.8 Anemia in other chronic diseases classified elsewhere; I48.0 Paroxysmal atrial fibrillation; I25.10 Atherosclerotic heart disease of native coronary artery without angina pectoris; M15.9 Polyosteoarthritis, unspecified; G89.29 Other chronic pain; Z66 Do not resuscitate; Z96.643 Presence of artificial hip joint, bilateral; Z85.068 Personal history of other malignant neoplasm of small intestine; Z85.028 Personal history of other malignant neoplasm of stomach; Z92.21 Personal history of antineoplastic chemotherapy; Z85.3 Personal history of malignant neoplasm of breast; Z90.13 Acquired absence of bilateral breasts and nipples; Z95.5 Presence of coronary angioplasty implant and graft; Z63.4 Disappearance and death of family member; Z91.5 Personal history of self-harm; Z72.0 Tobacco use; Z79.891 Long term (current) use of opiate analgesic
CPT/HCPCS: 36415; 70450; 71275; 74177; 80048; 80053; 81001; 82105; 82728; 83036; 83540; 83605; 83690; 83880; 84466; 84484; 85014; 85018; 85025; 85520; 85610; 86850; 86900; 86901; 93005; 93306; 93971; 96361; 96365; 96366; 96375; 96376; 97116; 97161; 97530; 99285; A9270; G0378; J1170; J1815; J3490; Q9967; 81003; 82272; 85027; 87086

== ENCOUNTER 2019-12-10 19:10 | Outpatient (CLI) | payer MEDICARE, OTHER | END 2019-12-10 19:11 | disposition critical access hospital (66) | LOC: EMS 19:10 | PROVIDERS: ATTEND Surgery | DX: R07.89 Other chest pain (principal) | CPT/HCPCS: A0425; A0427 ==

== ENCOUNTER 2019-12-10 19:31 | Emergency (ER) | payer MEDICARE, OTHER ==
[2019-12-10] MEDS ORDERED: MORPHINE 2 MG/ML CARPUJECT IVP STA (19:49)
[2019-12-10] MEDS ORDERED: IOVERSOL 320 100 ML VIAL IVP ONE ×2 (19:52→21:20)
[2019-12-10 20:08] LABS: BASOPHILS % (AUTO) 0.5 %; EOSINOPHILS # (AUTO) 0.1 10^3/uL (0.0-0.7); EOSINOPHILS % (AUTO) 1.6 %; HGB - HEMOGLOBIN 9.1 g/dL (12.0-16.0); LYMPHOCYTES # (AUTO) 0.7 10^3/uL (1.5-3.5); MEAN CORPUSCULAR HEMOGLOBIN 28.3 pg (27.0-31.0); MEAN CORPUSCULAR HGB CONC 31.8 g/dL (32.0-36.0); MEAN CORPUSCULAR VOLUME 89.1 fL (81.0-99.0); MONOCYTES # (AUTO) 0.8 10^3/uL (0.0-1.0); MONOCYTES % (AUTO) 10.5 %; NEUTROPHILS # (AUTO) 6.2 10^3/uL (1.5-6.6); NEUTROPHILS % (AUTO) 77.9 %; PLT - PLATELET COUNT 151 10^3/uL (130-450); RED BLOOD COUNT 3.21 10^6/uL (4.20-5.40); RED CELL DISTRIBUTION WIDTH 15.1 % (12.0-15.0); WHITE BLOOD COUNT 7.9 x10^3/uL (4.8-10.8)
[2019-12-10 20:16] LABS: PT - PROTHROMBIN TIME 21.4 secs (9.9-12.6)
[2019-12-10 20:22] LABS: ALBUMIN/GLOBULIN RATIO 0.9 (1.0-2.2); ALKALINE PHOSPHATASE 101 IU/L (42-121); ALT ALANINE AMINOTRANSFERASE < 10 IU/L (10-60); AST ASPARTATE AMINOTRANSFERASE 20 IU/L (10-42); BILIRUBIN,TOTAL 0.8 mg/dL (0.2-1.0); BUN - BLOOD UREA NITROGEN 30 mg/dL (6-20); CALCIUM 8.5 mg/dL (8.5-10.3); CARBON DIOXIDE - CO2 24 mmol/L (21-32); CHLORIDE 96 mmol/L (101-111); CREATININE 0.6 mg/dL (0.4-1.0); GFR - MDRD 95 (>89); GLUCOSE 177 mg/dL (70-100); LIPASE 19 U/L (22-51); SODIUM 133 mmol/L (135-145); TOTAL PROTEIN 6.2 g/dL (6.7-8.2)
--- NOTE | 2019-12-10 20:27 | ED Physician Documentation ---
PD HPI CHEST PAIN - Stated complaint Stated Complaint: CHEST PAIN - Chief complaint Chief Complaint: Cardiac - History obtained from History obtained from: Patient - History of Present Illness Timing - onset: How many hours ago (1.5) Timing - onset during: Rest Timing - duration: Hours (1.5) Timing - details: Abrupt onset Pain level max: 0 Pain level now: 0 Quality: Pressure Location: Right chest Radiation: No: Jaw, Neck, Back, Abdominal, Left upper extremity, Right upper extremity Improved by: Rest Worsened by: Movement, Palpation Associated symptoms: No: Shortness of air, Diaphoresis, Nausea, Vomiting, Feeling faint / dizzy, General Weakness, Palpitations, Cough - Additional information Additional information: Patient states it feels similar to when she had a pulmonary embolus. Review of Systems Ten Systems: 10 systems reviewed and negative Constitutional: denies: Fever, Chills Nose: denies: Rhinorrhea / runny nose, Congestion Skin: denies: Rash Musculoskeletal: denies: Neck pain, Back pain Neurologic: denies: Headache PD PAST MEDICAL HISTORY - Past Medical History Cardiovascular: Hypertension, High cholesterol, Coronary artery disease, Atrial fibrillation Respiratory: None Neuro: Other Endocrine/Autoimmune: Type 2 diabetes GI: None [employer]: Breast cancer : None HEENT: None Psych: Depression Musculoskeletal: Osteoarthritis, Osteopenia, Other Derm: None - Past Surgical History Past Surgical History: Yes General: Cholecystectomy, Appendectomy, Gastric surgery, Hiatal hernia repair Ortho: Hip replacement /[employer]: Oophrectomy, Mastectomy, Breast implants Cardiovascular: Coronary stent - Present Medications Home Medications: Ambulatory Orders Medication Instructions Recorded Confirmed Oxybutynin [Ditropan] 5 mg PO BID 11/16/19 11/16/19 Tizanidine HCl 4 mg PO BID PRN 11/16/19 11/16/19 Acetaminophen [Tylenol Extra 1,000 mg PO TID #90 tablet 11/18/19 Strength] Atorvastatin Calcium 10 mg PO DAILY #30 tablet 11/18/19 Citalopram [CeleXA] 10 mg PO DAILY #30 tablet 11/18/19 Enoxaparin [Lovenox] 80 mg SUBQ Q24H #7 syringe 11/18/19 Isosorbide Mononitrate ER [Imdur] 60 mg PO DAILY #60 tablet 11/18/19 Metformin HCl 500 mg PO BID #60 tablet 11/18/19 Metoprolol Succinate [Toprol Xl] 100 mg PO BID #60 tablet 11/18/19 Morphine Ir [Ms Ir] 7.5 mg PO Q6H PRN #15 tablet 11/18/19 Senna [Senokot] 8.6 - 17.2 mg PO DAILY #30 tablet 11/18/19 Warfarin [Coumadin] 5 mg PO 1400 #30 tablet 11/18/19 glipiZIDE [Glipizide] 5 mg PO BIDWM #60 tablet 11/18/19 - Allergies Allergies/Adverse Reactions: Allergies Allergy/AdvReac Type Severity Reaction Status Date / Time codeine Allergy Unknown Verified 11/15/19 09:56 - Social History Does the pt smoke?: Yes Smoking Status: Current some day smoker Does the pt drink ETOH?: Yes Does the pt have substance abuse?: No - Immunizations Immunizations are current?: Yes - POLST Patient has POLST: No POLST Status: Full Code PD ED PE NORMAL - Vitals Vital signs reviewed: Yes - General General: Alert and oriented X 3, No acute distress - HEENT HEENT: Moist mucous membranes - Neck Neck: Supple, no meningeal sign - Cardiac Cardiac: RRR - Respiratory Respiratory: No respiratory distress, Clear bilaterally - Abdomen Abdomen: Soft, Non tender, Non distended - Derm Derm: Warm and dry - Extremities Extremities: No edema - Neuro Neuro: Alert and oriented X 3 - Psych Psych: Normal mood, Normal affect - Free text exam Free text exam: Tender palpation across the anterior chest wall, especially on the right. This reproduces her pain. normal skin Results - Vitals Vitals: Vital Signs - 24 hr 12/10/19 12/10/19 19:39 21:05 Temperature 36.7 C Heart Rate 93 95 Respiratory 18 18 Rate Blood Pressure 155/84 H 143/87 H O2 Saturation 98 99 Oxygen O2 Source [] Room air O2 Source [] Nasal cannula O2 Source Room air - EKG (time done) 1941 Rate: Rate (enter#) (98) Rhythm: NSR [place]: Normal Intervals: Normal [place] QRS: Normal Ischemia: Normal ST segments - Labs Labs: Laboratory Tests 12/10/19 12/10/19 12/10/19 20:02 20:02 20:02 WBC 7.9 RBC 3.21 L Hgb 9.1 L Hct 28.6 L MCV 89.1 MCH 28.3 MCHC 31.8 L RDW 15.1 H Plt Count 151 MPV 10.0 Neut # (Auto) 6.2 Lymph # (Auto) 0.7 L [place] # (Auto) 0.8 Eos # (Auto) 0.1 Baso # (Auto) 0.0 Absolute Nucleated RBC 0.00 Nucleated RBC % 0.0 PT INR APTT Sodium 133 L Potassium 3.9 Chloride 96 L Carbon Dioxide 24 Anion Gap 13.0 BUN 30 H Creatinine 0.6 Estimated GFR (MDRD) 95 Glucose 177 H Calcium 8.5 Total Bilirubin 0.8 AST 20 ALT < 10 L Alkaline Phosphatase 101 Troponin I High Sens 88.2 H* Total Protein 6.2 L Albumin 3.0 L Globulin 3.2 Albumin/Globulin Ratio 0.9 L Lipase 19 L 12/10/19 20:02 WBC RBC Hgb Hct MCV MCH MCHC RDW Plt Count MPV Neut # (Auto) Lymph # (Auto) [place] # (Auto) Eos # (Auto) Baso # (Auto) Absolute Nucleated RBC Nucleated RBC % PT 21.4 H INR 2.0 H APTT 46.0 H Sodium Potassium Chloride Carbon Dioxide Anion Gap BUN Creatinine Estimated GFR (MDRD) Glucose Calcium Total Bilirubin AST ALT Alkaline Phosphatase Troponin I High Sens Total Protein Albumin Globulin Albumin/Globulin Ratio Lipase - Rads (name of study) CT chest pulm angio Radiology: Prelim report reviewed, EMP read contemporaneously, See rad report (1. New acute pulmonary embolism within a right lower lobe subsegmental pulmonary artery. No right heart strain. 2. Near complete interval resolution of the previously seen right upper lobe pulmonary embolism. 3. Interval resolution of the previously seen left lingula pulmonary embolism. 4. Interlobular septal thickening suggest interstitial pulmonary edema. 5. Mild upper lobe predominant emphysema. 6. Again scattered pulmonary nodules largest measures 6.5 mm in the right upper lobe. See below for recommendations. 7. Cholecystectomy. 8. New pneumobilia, correlate with history of sphincterotomy. 9. Again infiltrative appearing mass within the left lobe of the liver which was better seen on prior study. Consider MRI liver for further evaluation. 10. Other chronic findings detailed above. ) CT abd/pelvis Radiology: Prelim report reviewed, EMP read contemporaneously PD MEDICAL DECISION MAKING - ED course Complexity details: reviewed old records, reviewed results, re-evaluated patient, considered differential, d/w patient, d/w family, d/w residential property consultant ED course: 89-year-old female with resolving pulmonary emboli, she does have a new pulmonary embolism in the right lower lobe, subsegmental however. No right heart strain. Therapeutic on Coumadin. She does have tenderness in the right lower quadrant on serial examination of the abdomen. CT abdomen pelvis was ordered. Does have a mildly elevated high-sensitivity troponin. We will repeat this. Patient is signed out to the oncoming emergency department physician awaiting results of the CT abdomen pelvis as well as the repeat high-sensitivity troponin. Patient is adamant that she does not want any cardiac procedures. She does not want an angiogram or stents or bypass. She states that she would be fine being treated medically if she has a non-ST elevation [place]. This document was made in part using voice recognition software. While efforts are made to proofread this document, sound alike and grammatical errors may occur. Departure - Departure Clinical Impression: Adequate anticoagulation on anticoagulant therapy, Bilateral pulmonary embolism, Liver mass Condition: Stable
[2019-12-10] MEDS: IOVERSOL 320 100 ML VIAL IVP ONE ×2 (20:49→21:42)
--- NOTE | 2019-12-10 21:43 | CT Report ---
Reason: R chest pain, h/o PE Procedure Date: 12/10/2019 Accession Number: [id number] / [id number] Procedure: CT - ANGIO CHEST W/WO CPT Code: Final Report FULL RESULT: EXAM: CT ANGIOGRAM CHEST EXAM DATE: 12/10/2019 08:48 PM. CLINICAL HISTORY: Right chest pain. Evaluate for pulmonary embolism. COMPARISON: ABDOMEN/PELVIS W/ 11/16/2019 8:57 AM CHEST ANGIO 11/16/2019 8:57 AM. TECHNIQUE: Routine helical imaging was performed through the chest in the pulmonary arterial phase. IV Contrast: 80 cc Optiray 320. Reconstructions: Coronal 3-D MIP reconstructions. Sagittal and coronal. In accordance with CT protocol optimization, one or more of the following dose reduction techniques were utilized for this exam: automated exposure control, adjustment of mA and/or KV based on patient size, or use of iterative reconstructive technique. FINDINGS: Diagnostic quality: Adequate. Pulmonary embolism: New acute pulmonary embolism within a right lower lobe subsegmental pulmonary artery. Near complete interval resolution of the pulmonary embolism seen in a right upper lobe pulmonary artery. Interval resolution of previously seen pulmonary embolism in the left lingula branch. Right heart strain: None Pulmonary arteries: Normal in caliber. Heart: Cardiomegaly with reflux of contrast into the IVC. There is three-vessel coronary artery disease. Aorta: No aneurysm. There is severe aortic atherosclerosis. Study not adequate to evaluate for dissection given phase of contrast. Central airways: Mild bronchiectasis. Lung parenchyma: Scarring in the bilateral lung bases. Mild upper lobe predominant emphysema. Again scattered pulmonary nodules largest measures 6.5 mm in the right upper lobe. Interlobular septal thickening suggest pulmonary edema. Pleural effusion: None Pneumothorax: None Adenopathy: None Imaged abdomen: --Cholecystectomy. --New pneumobilia, correlate with history of sphincterotomy. --Again infiltrative appearing mass within the left lobe of the liver which was better seen on prior study. --Fatty atrophy of the pancreas. --Coarse calcifications in the spleen consistent with old granulomatous disease. --Again bilateral perirenal fluid, similar to prior. --Severe atherosclerosis of the abdominal aorta. -- Colonic diverticulosis, no diverticulitis. --Again partially imaged distal gastrectomy. Sidewalls: Again status post bilateral breast augmentation. Right subclavian approach Port-A-Cath with tip in the distal SVC. Bones: Unchanged T12 compression fracture. IMPRESSION: 1. New acute pulmonary embolism within a right lower lobe subsegmental pulmonary artery. No right heart strain. 2. Near complete interval resolution of the previously seen right upper lobe pulmonary embolism. 3. Interval resolution of the previously seen left lingula pulmonary embolism. 4. Interlobular septal thickening suggest interstitial pulmonary edema. 5. Mild upper lobe predominant emphysema. 6. Again scattered pulmonary nodules largest measures 6.5 mm in the right upper lobe. See below for recommendations. 7. Cholecystectomy. 8. New pneumobilia, correlate with history of sphincterotomy. 9. Again infiltrative appearing mass within the left lobe of the liver which was better seen on prior study. Consider MRI liver for further evaluation. 10. Other chronic findings detailed above. RECOMMENDATIONS: Recommend follow-up of the described nodule(s) according to the following guidelines: Fleischner Society Recommendations 2017 MacMahon et al. Radiology 2017 Solid Nodules-Low Risk Patients: 6-8mm (multiple) -CT at 3-6 months, then consider at CT 18-24 months Solid Nodules-High Risk Patients: 6-8mm (multiple) -CT at 3-6 months, then CT at 18-24 months [facility] The call report notification system was initiated by Dr. Fei Deshpande at 09:35 PM on 12/10/2019. The above call report findings were discussed with Joshua Mullins by Dr. Fei Deshpande at 09:40 PM on 12/10/2019.
--- NOTE | 2019-12-10 22:24 | CT Report ---
Reason: RLQ abd pain Procedure Date: 12/10/2019 Accession Number: [id number] / [id number] Procedure: CT - Abdomen/Pelvis W CPT Code: Final Report FULL RESULT: EXAM: CT ABDOMEN AND PELVIS EXAM DATE: 12/10/2019 09:38 PM. CLINICAL HISTORY: Right upper quadrant abdominal pain. COMPARISONS: ABDOMEN/PELVIS W/ 11/16/2019 8:57 AM. TECHNIQUE: Routine helical CT imaging was performed through the abdomen and pelvis. IV contrast: 100 cc Optiray 320. Enteric contrast: No. Reconstructions: Coronal and sagittal. In accordance with CT protocol optimization, one or more of the following dose reduction techniques were utilized for this exam: automated exposure control, adjustment of mA and/or KV based on patient size, or use of iterative reconstructive technique. FINDINGS: Imaged chest: For evaluation of the chest, please see separately dictated CTPA of the same day. Liver: Again infiltrating ill-defined mass occupies the left lobe of the liver and appears increased in size from prior. There are again at least 2 hypoenhancing hypoenhancing nodules in the posterior right lobe. The left hepatic veins and portal vein appear narrowed secondary to the left liver mass. Gallbladder: Cholecystectomy. Biliary: Pneumobilia, new from prior. Unchanged mild intrahepatic dilatation. Unchanged dilatation of the common bile duct. Pancreas: Marked atrophy. Spleen: Acute splenic infarct. Again coarse calcifications consistent with old granulomatous disease. Adrenal glands: Unremarkable. Kidneys: No hydronephrosis or nephrolithiasis, however, limited evaluation for small stones given contrast opacified collecting systems. Again a cyst in the upper pole of the right kidney. Left renal cortical scarring. Urinary bladder: Metallic artifact from patient's bilateral total hip arthroplasties markedly limit evaluation of the lower pelvis. The urinary bladder is not well seen or evaluated. Reproductive organs: Metallic artifact from patient's bilateral total hip arthroplasties markedly limit evaluation of the lower pelvis. The uterus and adnexa are not well seen or evaluated. Bowel: Colonic diverticulosis, no obvious diverticulitis. The cecum is gas and stool distended. Stomach: Status post distal gastrectomy and gastrojejunostomy. Appendix: Not reliably identified. Miscellaneous: No free fluid. No extraluminal gas. Vasculature: -- Severe atherosclerosis of the abdominal aorta. 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 The SMA is reconstituted via collaterals. Lymph nodes: No pathologically enlarged lymph nodes identified. Bones: The bones are markedly osteopenic. Status post bilateral total hip arthroplasty. No suspicious osseous lesions. Again old T12 compression fracture deformity. Sidewalls: -- Status post ventral hernia repair with mesh. --There is a rim-enhancing structure within the left anterior gluteal musculature which abuts the overlying femur and may be contiguous with the joint measuring 5.7 x 3.9 x 5.2 cm, which is increased from prior. IMPRESSION: 1. Acute splenic infarct. 2. 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 The SMA is reconstituted via collaterals. No obvious evidence of bowel ischemia. 3. Again infiltrating ill-defined mass occupies the left lobe of the liver and appears increased in size from prior. Differential includes hepatocellular carcinoma versus metastatic disease. Recommend nonemergent MRI liver further evaluation. 4. Cholecystectomy. 5. New pneumobilia, correlate with history of sphincterotomy. Unchanged mild intrahepatic dilatation. Unchanged dilatation of the common bile duct. 6. Status post distal gastrectomy and gastrojejunostomy. 7. Colonic diverticulosis, no obvious diverticulitis. 8. Bilateral total hip arthroplasty. 9. There is a rim-enhancing structure within the left anterior gluteal musculature which abuts the overlying femur and may be contiguous with the joint measuring 5.7 x 3.9 x 5.2 cm, which is increased from prior. Favor abscess, possibly septic joint, however, given attenuation mass cannot be excluded. Recommend ultrasound for further evaluation. 10. Other chronic findings detailed above. RADIA
--- NOTE | 2019-12-11 00:18 | ED Physician Documentation ---
History of Present Illness - Stated complaint Stated Complaint: CHEST PAIN - Chief complaint Chief Complaint: Cardiac - History obtained from History obtained from: Other (patient signed out to me at shift change from dr. villela, please see his note for further details.) Review of Systems Constitutional: reports: Reviewed and negative Eyes: reports: Reviewed and negative Ears: reports: Reviewed and negative Nose: reports: Reviewed and negative Throat: reports: Reviewed and negative Cardiac: reports: Chest pain / pressure Respiratory: reports: Reviewed and negative GI: reports: Abdominal Pain : reports: Reviewed and negative Skin: reports: Reviewed and negative Musculoskeletal: reports: Reviewed and negative Neurologic: reports: Reviewed and negative Psychiatric: reports: Reviewed and negative Endocrine: reports: Reviewed and negative Immunocompromised: reports: Reviewed and negative PD PAST MEDICAL HISTORY - Past Medical History Cardiovascular: Hypertension, High cholesterol, Coronary artery disease, Atrial fibrillation Respiratory: None Neuro: Other Endocrine/Autoimmune: Type 2 diabetes GI: None 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: Breast cancer : None HEENT: None Psych: Depression Musculoskeletal: Osteoarthritis, Osteopenia, Other Derm: None - Past Surgical History Past Surgical History: Yes General: Cholecystectomy, Appendectomy, Gastric surgery, Hiatal hernia repair Ortho: Hip replacement /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: Oophrectomy, Mastectomy, Breast implants Cardiovascular: Coronary stent - Present Medications Home Medications: Ambulatory Orders Medication Instructions Recorded Confirmed Oxybutynin [Ditropan] 5 mg PO BID 11/16/19 11/16/19 Tizanidine HCl 4 mg PO BID PRN 11/16/19 11/16/19 Acetaminophen [Tylenol Extra 1,000 mg PO TID #90 tablet 11/18/19 Strength] Atorvastatin Calcium 10 mg PO DAILY #30 tablet 11/18/19 Citalopram [CeleXA] 10 mg PO DAILY #30 tablet 11/18/19 Enoxaparin [Lovenox] 80 mg SUBQ Q24H #7 syringe 11/18/19 Isosorbide Mononitrate ER [Imdur] 60 mg PO DAILY #60 tablet 11/18/19 Metformin HCl 500 mg PO BID #60 tablet 11/18/19 Metoprolol Succinate [Toprol Xl] 100 mg PO BID #60 tablet 11/18/19 Morphine Ir [Ms Ir] 7.5 mg PO Q6H PRN #15 tablet 11/18/19 Senna [Senokot] 8.6 - 17.2 mg PO DAILY #30 tablet 11/18/19 Warfarin [Coumadin] 5 mg PO 1400 #30 tablet 11/18/19 glipiZIDE [Glipizide] 5 mg PO BIDWM #60 tablet 11/18/19 - Allergies Allergies/Adverse Reactions: Allergies Allergy/AdvReac Type Severity Reaction Status Date / Time codeine Allergy Unknown Verified 11/15/19 09:56 - Social History Does the pt smoke?: Yes Smoking Status: Current some day smoker Does the pt drink ETOH?: Yes Does the pt have substance abuse?: No - Immunizations Immunizations are current?: Yes - POLST Patient has POLST: No POLST Status: Full Code PD ED PE NORMAL - Vitals Vital signs reviewed: Yes - General General: Alert and oriented X 3, No acute distress - HEENT HEENT: PERRL - Neck Neck: Supple, no meningeal sign - Cardiac Cardiac: RRR, No murmur - Respiratory Respiratory: Clear bilaterally - Abdomen Abdomen: Normal bowel sounds, Soft, Non tender, Non distended - Derm Derm: Warm and dry - Extremities Extremities: No deformity - Neuro Neuro: Alert and oriented X 3 - Psych Psych: Normal mood, Normal affect Results - Vitals Vitals: Vital Signs - 24 hr 12/10/19 12/10/19 12/10/19 19:39 21:05 23:00 Temperature 36.7 C Heart Rate 93 95 90 Respiratory 18 18 17 Rate Blood Pressure 155/84 H 143/87 H 142/82 H O2 Saturation 98 99 97 Oxygen O2 Source [] Room air O2 Source [] Nasal cannula O2 Source Room air - Labs Labs: Laboratory Tests 12/10/19 12/10/19 12/10/19 20:02 20:02 20:02 WBC 7.9 RBC 3.21 L Hgb 9.1 L Hct 28.6 L MCV 89.1 MCH 28.3 MCHC 31.8 L RDW 15.1 H Plt Count 151 MPV 10.0 Neut # (Auto) 6.2 Lymph # (Auto) 0.7 L [place] # (Auto) 0.8 Eos # (Auto) 0.1 Baso # (Auto) 0.0 Absolute Nucleated RBC 0.00 Nucleated RBC % 0.0 PT INR APTT Sodium 133 L Potassium 3.9 Chloride 96 L Carbon Dioxide 24 Anion Gap 13.0 BUN 30 H Creatinine 0.6 Estimated GFR (MDRD) 95 Glucose 177 H Calcium 8.5 Total Bilirubin 0.8 AST 20 ALT < 10 L Alkaline Phosphatase 101 Troponin I High Sens 88.2 H* Total Protein 6.2 L Albumin 3.0 L Globulin 3.2 Albumin/Globulin Ratio 0.9 L Lipase 19 L 12/10/19 12/10/19 20:02 21:52 WBC RBC Hgb Hct MCV MCH MCHC RDW Plt Count MPV Neut # (Auto) Lymph # (Auto) [place] # (Auto) Eos # (Auto) Baso # (Auto) Absolute Nucleated RBC Nucleated RBC % PT 21.4 H INR 2.0 H APTT 46.0 H Sodium Potassium Chloride Carbon Dioxide Anion Gap BUN Creatinine Estimated GFR (MDRD) Glucose Calcium Total Bilirubin AST ALT Alkaline Phosphatase Troponin I High Sens 96.9 H* Total Protein Albumin Globulin Albumin/Globulin Ratio Lipase PD MEDICAL DECISION MAKING - ED course Complexity details: reviewed old records, reviewed results, re-evaluated patient, d/w patient, d/w family, d/w community resource consultant - Consults Consults: Consulted (name) (01:14 am. have been trying for several hours to get patient transferred to higher level of care that has cardiology, IR, orthopedic surgery. [facility] refused this patient, [facility] refused [facility] patient, [facility] patient. will try [facility]. ), Discussed case with (dr. Almeida at [facility] in [place]. dr. almeida will accept this patient. family updated. agreeable to transfer.) - Critical Care Time(min): 74 Time Includes: Direct patient care, Review records, Reassess patient, Document care, Coordinate care, Medical consult, Family consult for tx dec Data interpretation: Labs, Pulse ox, CXR Procedures included in critical care time: Peripheral IV Procedures excluded from critical care time: EKG Departure - Departure Disposition: 02 Transfer Acute Care Hosp Clinical Impression: Adequate anticoagulation on anticoagulant therapy, Bilateral pulmonary embolism, Liver mass, Splenic infarct, Non-STEMI (non-ST elevated myocardial infarction), Effusion, left hip Pulmonary embolism Qualifiers: Pulmonary embolism type: unspecified Chronicity: acute Acute cor pulmonale presence: unspecified Qualified Code(s): I26.99 - Other pulmonary embolism without acute cor pulmonale Condition: Stable
[2019-12-11] MEDS ORDERED: NITROGLYCERIN SL 0.4 MG TABLET SL STA (01:51)
[2019-12-11] MEDS ORDERED: MORPHINE 2 MG/ML CARPUJECT IVP STA ×2 (02:18→05:19)
[2019-12-11 05:05] VITALS: BP 146/91
[2019-12-11] MEDS ORDERED: MORPHINE 2 MG/ML CARPUJECT ONE (05:13)
== END 2019-12-11 05:28 | disposition short-term general hospital (02) ==
LOC: EDUNIT# → ED 19:31
DX: I26.99 Other pulmonary embolism without acute cor pulmonale (principal); Z86.711 Personal history of pulmonary embolism; Z79.01 Long term (current) use of anticoagulants; I21.4 Non-ST elevation (NSTEMI) myocardial infarction; D73.5 Infarction of spleen; R16.0 Hepatomegaly, not elsewhere classified; R10.31 Right lower quadrant pain; M25.452 Effusion, left hip; Z96.643 Presence of artificial hip joint, bilateral; J43.9 Emphysema, unspecified; I10 Essential (primary) hypertension; I25.10 Atherosclerotic heart disease of native coronary artery without angina pectoris; Z95.5 Presence of coronary angioplasty implant and graft; E11.9 Type 2 diabetes mellitus without complications; Z79.84 Long term (current) use of oral hypoglycemic drugs; F17.200 Nicotine dependence, unspecified, uncomplicated; Z85.3 Personal history of malignant neoplasm of breast
CPT/HCPCS: 36415; 71275; 74177; 80053; 83690; 84484; 85025; 85610; 85730; 93005; 96374; 96376; 99285; 99291; A9270; Q9967

== ENCOUNTER 2019-12-11 05:28 | Outpatient (CLI) | payer MEDICARE, OTHER | END 2019-12-11 05:29 | disposition short-term general hospital (02) | LOC: EMS 05:28 | PROVIDERS: ATTEND Surgery | DX: I21.4 Non-ST elevation (NSTEMI) myocardial infarction (principal); I26.99 Other pulmonary embolism without acute cor pulmonale; D73.5 Infarction of spleen | CPT/HCPCS: A0425; A0426 ==